=== PATIENT | female | born 1960 | race Caucasian/White ===

== ENCOUNTER → 2021-07-12 | Outpatient (CLI) | payer BC ==
--- NOTE | 2021-07-12 15:01 | US ---
EXAMINATION TYPE: US venous doppler duplex LE LT DATE OF EXAM: 07/12/2021 2:26 PM COMPARISON: NONE CLINICAL HISTORY: M79.662 PAIN IN LEFT LOWER LEG. Leg spasms SIDE PERFORMED: Left TECHNIQUE: The lower extremity deep venous system is examined utilizing real time linear array sonog ranjith with graded compression, doppler sonography and color-flow sonography. VESSELS IMAGED: Common Femoral Vein Deep Femoral Vein Greater Saphenous Vein * Femoral Vein Popliteal Vein Small Saphenous Vein * Proximal Calf Veins (* superficial vessels) There is normal flow, compressibility, vascular waveforms. Left Leg: Negative for DVT IMPRESSION: No evident deep venous thrombosis within the left lower extremity from the level of the k nee centrally
== END | disposition home or self-care (01) ==
LOC: RADUSWWP 14:04
PROVIDERS: ATTEND Internal Medicine
DX: M79.662 Pain in left lower leg (principal)

== ENCOUNTER 2022-03-03 11:52 | Inpatient (IN) | payer BC ==
[2022-03-03] MEDS ORDERED: SODIUM CHLORIDE 0.9% 500 ML 500 ML IV STA (12:30)
[2022-03-03] MEDS ORDERED: ONDANSETRON 4 MG/2 ML VIAL IVP STA (12:30)
--- NOTE | 2022-03-03 12:36 | ED ---
General Adult HPI - General Chief complaint: Fall Stated complaint: Pain, vomiting, falls Time Seen by Provider: 03/03/22 12:19 Source: patient, family, RN notes reviewed, old records reviewed Mode of arrival: wheelchair Limitations: no limitations - History of Present Illness Initial comments: 62-year-old female alert and oriented 4 presents to the emergency room with her , states sent by her primary care doctor for evaluation and admission. Patient states that she has had 4 weeks of left hip pain causing her to have multiple falls. Last fell this morning in parking lot of doctor's office onto her left knee. She continues to have left knee pain and left hip pain for several weeks. She states that she is scheduled for an MRI March 12. She has also had 3 days of nausea and vomiting with a 12 pound weight loss, generalized weakness. History of asthma, coronary artery disease, diabetes, hypertension and cholecystectomy. -: week(s) (4) Location: left, lower extremity (hip and knee) Severity scale (1-10): 10 Quality: constant Consistency: constant Improves with: immobilization Worsens with: other (walking) Associated Symptoms: loss of appetite, nausea/vomiting (for 3 days) Treatments Prior to Arrival: other (PCP sent to ER, [facility] at 0330) - Related Data Home Medications Medication Instructions Recorded Confirmed Aspirin EC [Ecotrin Low Dose] 81 mg PO DAILY 03/03/22 03/03/22 Atorvastatin Calcium 40 mg PO HS 03/03/22 03/03/22 Budesonide/Formoterol Fumarate 2 puff INHALATION RT-BID 03/03/22 03/03/22 [Symbicort 160-4.5 Mcg Inhaler] Famotidine [Pepcid] 20 mg PO BID 03/03/22 03/03/22 HYDROcodone/APAP 10-325MG [[place] 1 tab PO BID 03/03/22 03/03/22 10-325] Metoprolol Tartrate [Lopressor] 50 mg PO BID 03/03/22 03/03/22 Naproxen [EC-Naprosyn] 500 mg PO BID 03/03/22 03/03/22 Omeprazole [PriLOSEC] 20 mg PO BID 03/03/22 03/03/22 Orphenadrine Citrate [Orphenadrine 100 mg PO BID 03/03/22 03/03/22 Citrate ER] Pantoprazole [Protonix] 40 mg PO DAILY 03/03/22 03/03/22 Pioglitazone [Actos] 30 mg PO DAILY 03/03/22 03/03/22 lisinopriL [Zestril] 20 mg PO DAILY 03/03/22 03/03/22 metFORMIN HCL 500 mg PO BID 03/03/22 03/03/22 Allergies Allergy/AdvReac Type Severity Reaction Status Date / Time No Known Allergies Allergy Verified 03/03/22 15:23 Review of Systems ROS Statement: Those systems with pertinent positive or pertinent negative responses have been documented in the HPI. ROS Other: All systems not noted in ROS Statement are negative. Past Medical History Past Medical History: Asthma, Coronary Artery Disease (CAD), Chest Pain / Angina, Diabetes Mellitus, Hypertension History of Any Multi-Drug Resistant Organisms: None Reported Past Surgical History: Section, Cholecystectomy, Heart Catheterization, Heart Catheterization With Stent Additional Past Surgical History / Comment(s): heart stents Past Psychological History: No Psychological Hx Reported Smoking Status: Current every day smoker Past Alcohol Use History: None Reported Past Drug Use History: None Reported General Exam Limitations: no limitations General appearance: alert, in no apparent distress Head exam: Present: atraumatic Eye exam: Absent: periorbital swelling Neck exam: Absent: meningismus Respiratory exam: Present: wheezes (Bilateral expiratory). Absent: respiratory distress, accessory muscle use Cardiovascular Exam: Present: tachycardia GI/Abdominal exam: Present: soft, tenderness (diffuse). Absent: distended, guarding, rebound, rigid Left Hip exam: Present: tenderness, pelvic stability. Absent: swelling, abrasion, laceration, ecchymosis, deformity, external rotation, internal rotation, shortening Upper Leg exam: Present: normal inspection. Absent: tenderness Knee exam: Present: tenderness, full knee extension. Absent: swelling, laceration, ecchymosis, deformity, effusion Lower Leg exam: Absent: tenderness, swelling Ankle exam: Absent: tenderness, swelling Foot/Toe exam: Absent: tenderness, swelling Neurovascular tendon exam: Present: no vascular compromise. Absent: abnormal cap refill, extremity cold to touch, pallor, decreased fine/light touch Back exam: Absent: tenderness, CVA tenderness (R), CVA tenderness (L), rash noted Neurological exam: Present: alert, oriented X3 Psychiatric exam: Present: normal affect, normal mood Skin exam: Present: warm, dry. Absent: cyanosis, diaphoretic, petechiae, pallor Course Vital Signs 03/03/22 03/03/22 03/03/22 11:53 13:38 13:46 Temperature 98.1 F Pulse Rate 125 H 120 H 116 H Respiratory 28 H Rate Blood Pressure 169/102 O2 Sat by Pulse 99 Oximetry 03/03/22 14:22 Temperature Pulse Rate 113 H Respiratory 18 Rate Blood Pressure 194/117 O2 Sat by Pulse 95 Oximetry EKG Findings - EKG Results: EKG shows: tachycardia (Sinus tachycardia with a ventricular rate of 114, TN interval 0.161, QRS 0.82, QTC 0.413) Medical Decision Making - Medical Decision Making No acute abdominal or pelvic process noted on noncontrast CT. Nonobstructive bilateral renal calculi. Small to moderate sized hiatal hernia. Patient does have a history of cholecystectomy. Chest x-ray shows no acute cardiopulmonary process. X-ray of the left knee shows no acute fracture or dislocation. Magnesium is 1.2 she was given IV supplementation. Potassium 3.2 was given oral supplementation. EKG shows sinus tachycardia at 114, no ST elevation, no old to compare. Troponin negative at 0.012. Patient denies any chest pain or shortness of breath. Patient states that she was at [facility] last week. Attempted to obtain records unsuccessful. Due to patient's frequent falls, generalized weakness and hypomagnesemia she will be admitted to the hospital. I did discuss this case with Dr. Barragan who is agreeable to admission . Case discussed with Dr. Jackson. - Lab Data Result diagrams: 03/03/22 12:52 03/03/22 12:52 Lab Results 03/03/22 03/03/22 03/03/22 Range/Units 12:52 12:52 12:52 WBC 12.2 H (3.8-10.6) k/uL RBC 5.29 (3.80-5.40) m/uL Hgb 17.1 H (11.4-16.0) gm/dL Hct 48.2 H (34.0-46.0) % MCV 91.1 (80.0-100.0) fL MCH 32.3 (25.0-35.0) pg MCHC 35.5 (31.0-37.0) g/dL RDW 13.1 (11.5-15.5) % Plt Count 382 (150-450) k/uL MPV 7.7 Neutrophils % 72 % Lymphocytes % 19 % Monocytes % 5 % Eosinophils % 2 % Basophils % 1 % Neutrophils # 8.8 H (1.3-7.7) k/uL Lymphocytes # 2.3 (1.0-4.8) k/uL Monocytes # 0.6 (0-1.0) k/uL Eosinophils # 0.2 (0-0.7) k/uL Basophils # 0.1 (0-0.2) k/uL PT 11.0 (9.0-12.0) sec INR 1.0 (<1.2) APTT 24.1 (22.0-30.0) sec Sodium 137 (137-145) mmol/L Potassium 3.2 L (3.5-5.1) mmol/L Chloride 99 (98-107) mmol/L Carbon Dioxide 23 (22-30) mmol/L Anion Gap 15 mmol/L BUN 11 (7-17) mg/dL Creatinine 0.40 L (0.52-1.04) mg/dL Est GFR (CKD-EPI)AfAm >90 (>60 ml/min/1.73 sqM) Est GFR (CKD-EPI)NonAf >90 (>60 ml/min/1.73 sqM) Glucose 249 H (74-99) mg/dL Plasma Lactic Acid Jairo (0.7-2.0) mmol/L Calcium 9.6 (8.4-10.2) mg/dL Ionized Calcium Essie 4.9 (4.5-5.3) mg/dL Magnesium 1.2 L (1.6-2.3) mg/dL Total Bilirubin 0.6 (0.2-1.3) mg/dL AST 23 (14-36) U/L ALT 22 (4-34) U/L Alkaline Phosphatase 112 (38-126) U/L Troponin I (0.000-0.034) ng/mL Total Protein 6.7 (6.3-8.2) g/dL Albumin 4.2 (3.5-5.0) g/dL Urine Color Urine Appearance (Clear) Urine pH (5.0-8.0) Ur Specific Jenn[place] (1.001-1.035) Urine Protein (Negative) Urine Glucose (UA) (Negative) Urine Ketones (Negative) Urine Blood (Negative) Urine Nitrite (Negative) Urine Bilirubin (Negative) Urine Urobilinogen (<2.0) mg/dL Ur Leukocyte Esterase (Negative) Coronavirus (PCR) (Not Detectd) 03/03/22 03/03/22 03/03/22 Range/Units 12:52 12:52 12:52 WBC (3.8-10.6) k/uL RBC (3.80-5.40) m/uL Hgb (11.4-16.0) gm/dL Hct (34.0-46.0) % MCV (80.0-100.0) fL MCH (25.0-35.0) pg MCHC (31.0-37.0) g/dL RDW (11.5-15.5) % Plt Count (150-450) k/uL MPV Neutrophils % % Lymphocytes % % Monocytes % % Eosinophils % % Basophils % % Neutrophils # (1.3-7.7) k/uL Lymphocytes # (1.0-4.8) k/uL Monocytes # (0-1.0) k/uL Eosinophils # (0-0.7) k/uL Basophils # (0-0.2) k/uL PT (9.0-12.0) sec INR (<1.2) APTT (22.0-30.0) sec Sodium (137-145) mmol/L Potassium (3.5-5.1) mmol/L Chloride (98-107) mmol/L Carbon Dioxide (22-30) mmol/L Anion Gap mmol/L BUN (7-17) mg/dL Creatinine (0.52-1.04) mg/dL Est GFR (CKD-EPI)AfAm (>60 ml/min/1.73 sqM) Est GFR (CKD-EPI)NonAf (>60 ml/min/1.73 sqM) Glucose (74-99) mg/dL Plasma Lactic Acid Jairo 1.7 (0.7-2.0) mmol/L Calcium (8.4-10.2) mg/dL Ionized Calcium Essie (4.5-5.3) mg/dL Magnesium (1.6-2.3) mg/dL Total Bilirubin (0.2-1.3) mg/dL AST (14-36) U/L ALT (4-34) U/L Alkaline Phosphatase (38-126) U/L Troponin I <0.012 (0.000-0.034) ng/mL Total Protein (6.3-8.2) g/dL Albumin (3.5-5.0) g/dL Urine Color Light Yellow Urine Appearance Clear (Clear) Urine pH 7.0 (5.0-8.0) Ur Specific Jenn[place] 1.008 (1.001-1.035) Urine Protein Negative (Negative) Urine Glucose (UA) 4+ H (Negative) Urine Ketones 2+ H (Negative) Urine Blood Negative (Negative) Urine Nitrite Negative (Negative) Urine Bilirubin Negative (Negative) Urine Urobilinogen <2.0 (<2.0) mg/dL Ur Leukocyte Esterase Negative (Negative) Coronavirus (PCR) (Not Detectd) 03/03/22 Range/Units 14:51 WBC (3.8-10.6) k/uL RBC (3.80-5.40) m/uL Hgb (11.4-16.0) gm/dL Hct (34.0-46.0) % MCV (80.0-100.0) fL MCH (25.0-35.0) pg MCHC (31.0-37.0) g/dL RDW (11.5-15.5) % Plt Count (150-450) k/uL MPV Neutrophils % % Lymphocytes % % Monocytes % % Eosinophils % % Basophils % % Neutrophils # (1.3-7.7) k/uL Lymphocytes # (1.0-4.8) k/uL Monocytes # (0-1.0) k/uL Eosinophils # (0-0.7) k/uL Basophils # (0-0.2) k/uL PT (9.0-12.0) sec INR (<1.2) APTT (22.0-30.0) sec Sodium (137-145) mmol/L Potassium (3.5-5.1) mmol/L Chloride (98-107) mmol/L Carbon Dioxide (22-30) mmol/L Anion Gap mmol/L BUN (7-17) mg/dL Creatinine (0.52-1.04) mg/dL Est GFR (CKD-EPI)AfAm (>60 ml/min/1.73 sqM) Est GFR (CKD-EPI)NonAf (>60 ml/min/1.73 sqM) Glucose (74-99) mg/dL Plasma Lactic Acid Jairo (0.7-2.0) mmol/L Calcium (8.4-10.2) mg/dL Ionized Calcium Essie (4.5-5.3) mg/dL Magnesium (1.6-2.3) mg/dL Total Bilirubin (0.2-1.3) mg/dL AST (14-36) U/L ALT (4-34) U/L Alkaline Phosphatase (38-126) U/L Troponin I (0.000-0.034) ng/mL Total Protein (6.3-8.2) g/dL Albumin (3.5-5.0) g/dL Urine Color Urine Appearance (Clear) Urine pH (5.0-8.0) Ur Specific Jenn[place] (1.001-1.035) Urine Protein (Negative) Urine Glucose (UA) (Negative) Urine Ketones (Negative) Urine Blood (Negative) Urine Nitrite (Negative) Urine Bilirubin (Negative) Urine Urobilinogen (<2.0) mg/dL Ur Leukocyte Esterase (Negative) Coronavirus (PCR) Not Detected (Not Detectd) Disposition Clinical Impression: Hypomagnesemia, Fall, Generalized weakness Disposition: ADMITTED IP TO THIS [facility] Decision Date: 03/03/22 Decision Time: 15:47
[2022-03-03] MEDS ORDERED: IPRATROPIUM-ALBUTEROL 3 ML NEB INHALATION STA (12:37)
[2022-03-03 13:19] LABS: Basophils # (A) 0.1 k/uL (0-0.2); Basophils % (A) 1 %; Eosinophils # (A) 0.2 k/uL (0-0.7); Eosinophils % (A) 2 %; HCT 48.2 % (34.0-46.0); HGB 17.1 gm/dL (11.4-16.0); Lymphocytes # (A) 2.3 k/uL (1.0-4.8); Lymphocytes % (A) 19 %; MCH 32.3 pg (25.0-35.0); MCHC 35.5 g/dL (31.0-37.0); MCV 91.1 fL (80.0-100.0); Mean Platelet Volume 7.7; Monocytes # (A) 0.6 k/uL (0-1.0); Monocytes % (A) 5 %; Neutrophils # (A) 8.8 k/uL (1.3-7.7); Neutrophils % (A) 72 %; Platelet Count 382 k/uL (150-450); RBC 5.29 m/uL (3.80-5.40); RDW 13.1 % (11.5-15.5); WBC 12.2 k/uL (3.8-10.6)
[2022-03-03 13:25] LABS: Ionized Calcium 4.9 mg/dL (4.5-5.3)
[2022-03-03 13:31] LABS: Partial Thromboplastin Time 24.1 sec (22.0-30.0)
[2022-03-03 13:35] LABS: ALT 22 U/L (4-34); AST 23 U/L (14-36); African American GFR (CKD) >90 (>60 ml/min/1.73 sqM); Albumin 4.2 g/dL (3.5-5.0); Alkaline Phosphatase 112 U/L (38-126); Anion Gap 15 mmol/L; Blood Urea Nitrogen 11 mg/dL (7-17); Calcium 9.6 mg/dL (8.4-10.2); Carbon Dioxide 23 mmol/L (22-30); Chloride 99 mmol/L (98-107); Glucose 249 mg/dL (74-99); Magnesium 1.2 mg/dL (1.6-2.3); Non-African American GFR(CKD) >90 (>60 ml/min/1.73 sqM); Potassium 3.2 mmol/L (3.5-5.1); Sodium 137 mmol/L (137-145); Total Bilirubin 0.6 mg/dL (0.2-1.3); Total Protein 6.7 g/dL (6.3-8.2)
--- NOTE | 2022-03-03 13:58 | XR ---
Left knee HISTORY: Trauma and pain 3 views the left knee Bone mineralization, joint spaces and alignment are maintained. There are atherosclerotic vascular ca lcifications noted. There may be minimal suprapatellar joint effusion, and soft tissue swelling in th e prepatellar region. IMPRESSION: No acute fracture or dislocation. Correlate for possible joint effusion, soft tissue swel ling.
--- NOTE | 2022-03-03 13:59 | XR ---
EXAMINATION TYPE: XR chest 2V DATE OF EXAM: 03/03/2022 COMPARISON: NONE HISTORY: Weakness, trauma and pain TECHNIQUE: Frontal and lateral views of the chest are obtained. FINDINGS: There is no focal air space opacity, pleural effusion, or pneumothorax seen. The cardiac silhouette size is within normal limits. Surgical clips present in the right upper quadrant. Suspect there is a coronary artery stent. Increased AP diameter chest and retrosternal airspace may be indic ative of underlying COPD. The osseous structures are intact. IMPRESSION: No acute cardiopulmonary process.
[2022-03-03] MEDS ORDERED: POTASSIUM CHLORIDE ER 20 MEQ TAB.ER PO STA (14:14)
[2022-03-03] MEDS ORDERED: Magnesium Replacement Protocol 1 EACH MISC MISCELLANE PRN (14:15)
[2022-03-03] MEDS: MAGNESIUM SULFATE-D5W PMX 1 GM in DEXTROSE/WATER 1 100ML.BAG IVPB SCH ×3 (14:21→17:14)
--- NOTE | 2022-03-03 14:48 | CT ---
EXAMINATION TYPE: CT abdomen pelvis wo con CT DLP: 429.6 mGycm, Automated exposure control for dose reduction was used. DATE OF EXAM: 03/03/2022 2:30 PM COMPARISON: None. CLINICAL INDICATION:Female, 62 years old with history of abdominal pain; TECHNIQUE: Standard CT of the abdomen and pelvis without IV or oral contrast. Lack of IV or oral co ntrast limits evaluation of solid and hollow organ viscera. Coronal and sagittal reformats were perfo rmed. FINDINGS: Evaluation is limited due to lack of IV contrast. LOWER CHEST: Bibasilar subpleural reticular opacity likely representing early fibrotic changes. Coron arnoldo artery calcifications. ABDOMEN LIVER: Unremarkable noncontrast appearance. GALLBLADDER AND BILE DUCTS: The gallbladder is surgically absent. No biliary duct dilatation. PANCREAS: Unremarkable noncontrast appearance. SPLEEN: Unremarkable noncontrast appearance. ADRENAL GLANDS: Unremarkable noncontrast appearance. KIDNEYS AND URETERS: No hydronephrosis. Nonobstructive bilateral renal calculi with a right lower jenise e calculus measuring about 4 mm and a left lower pole calculus measuring up to 3 mm. Mild atrophy of the right kidney compared to the left. Nonspecific bilateral perinephric fat stranding. PELVIS BLADDER: Moderately distended. REPRODUCTIVE: Portable CT noncontrast appearance. ABDOMEN & PELVIS STOMACH AND BOWEL: Small to moderate size hiatal hernia. No fat stranding. The appendix is within nor mal limits. No evidence of bowel obstruction. PERITONEUM: No evidence of pneumoperitoneum or free fluid. VASCULATURE: Moderate atherosclerotic calcifications are present throughout the abdominal aorta and i ts branches. No evidence of aortic aneurysm. MUSCULOSKELETAL: No acute osseous abnormalities. No aggressive osseous lesion. Multilevel degenerativ e changes of visualized spine. LYMPH NODES: No gross evidence for lymphadenopathy. SOFT TISSUE/ABDOMINAL WALL: Unremarkable IMPRESSION: 1. No acute abdominal/pelvic process within limitations of a noncontrast exam. 2. Nonobstructive bilateral renal calculi. 3. Small to moderate sized hiatal hernia.
[2022-03-03 15:23] LABS: Appearance,Urine Clear (Clear); Bilirubin,Urine Negative (Negative); Blood,Urine Negative (Negative); Color,Urine Light Yellow; Glucose,Urine (UA) 4+ (Negative); Leukocyte Esterase,Urine Negative (Negative); Nitrite,Urine Negative (Negative); Protein,Urine Negative (Negative); Specific Gravity,Urine 1.008 (1.001-1.035); Urobilinogen,Urine <2.0 mg/dL (<2.0)
[2022-03-03 15:28] LABS: Ketones,Urine 2+ (Negative)
[2022-03-03] MEDS ORDERED: IBUPROFEN 400 MG TAB PO PRN (15:47)
[2022-03-03] MEDS ORDERED: NALOXONE 0.4 MG/ML 1 ML VIAL IV PRN (15:47)
[2022-03-03] MEDS ORDERED: ONDANSETRON 4 MG/2 ML VIAL IVP PRN (15:47)
[2022-03-03] MEDS ORDERED: ACETAMINOPHEN TAB 325 MG TAB PO PRN (15:47)
[2022-03-03] MEDS: HYDROcodone/APAP 10-325MG 1 EACH TAB PO SCH (15:56)
--- NOTE | 2022-03-03 17:45 | P.HPIM ---
History of Present Illness H&P Date: 03/03/22 Natali Klein, is a 62-year-old female who presented to [facility] emergency room with a chief complaint of nausea or vomiting, left hip pain and multiple falls. She was evaluated in the emergency room, vital examination on presentation revealed a temperature of 98.1 pulse 125 respiration 28 blood pressure 169/102 pulse ox 95% on room air Laboratory data reveals white blood count 12.2 hemoglobin 17.1 platelet count 382 potassium 3.2 magnesium 1.2 Testing in the emergency room revealed computed tomography scan of the abdomen and pelvis without contrast revealed no acute abnormality there was nonobstructive bilateral renal calculi and [id number] sized hiatal hernia X-ray of the left knee revealed no acute fracture or dislocation possible joint effusion and soft tissue swelling, chest x-ray revealed no acute cardiopulmonary process, EKG revealed sinus tachycardia with possible right ventricular hypertrophy Patient was admitted to medical floor orthopedic surgery consultation request Past Medical History Past Medical History: Asthma, Coronary Artery Disease (CAD), Chest Pain / Angina, Diabetes Mellitus, Hypertension History of Any Multi-Drug Resistant Organisms: None Reported Past Surgical History: Section, Cholecystectomy, Heart Catheterization, Heart Catheterization With Stent Additional Past Surgical History / Comment(s): heart stents Past Psychological History: No Psychological Hx Reported Smoking Status: Current every day smoker Past Alcohol Use History: None Reported Past Drug Use History: None Reported Medications and Allergies Home Medications Medication Instructions Recorded Confirmed Type Aspirin EC [Ecotrin Low Dose] 81 mg PO DAILY 03/03/22 03/03/22 History Atorvastatin Calcium 40 mg PO HS 03/03/22 03/03/22 History Budesonide/Formoterol Fumarate 2 puff INHALATION RT-BID 03/03/22 03/03/22 History [Symbicort 160-4.5 Mcg Inhaler] Famotidine [Pepcid] 20 mg PO BID 03/03/22 03/03/22 History HYDROcodone/APAP 10-325MG [[place] 1 tab PO BID 03/03/22 03/03/22 History 10-325] Metoprolol Tartrate [Lopressor] 50 mg PO BID 03/03/22 03/03/22 History Naproxen [EC-Naprosyn] 500 mg PO BID 03/03/22 03/03/22 History Omeprazole [PriLOSEC] 20 mg PO BID 03/03/22 03/03/22 History Orphenadrine Citrate [Orphenadrine 100 mg PO BID 03/03/22 03/03/22 History Citrate ER] Pantoprazole [Protonix] 40 mg PO DAILY 03/03/22 03/03/22 History Pioglitazone [Actos] 30 mg PO DAILY 03/03/22 03/03/22 History lisinopriL [Zestril] 20 mg PO DAILY 03/03/22 03/03/22 History metFORMIN HCL 500 mg PO BID 03/03/22 03/03/22 History Allergies Allergy/AdvReac Type Severity Reaction Status Date / Time No Known Allergies Allergy Verified 03/03/22 15:23 Physical Exam Vitals: Vital Signs Temp Pulse Resp BP Pulse Ox 03/03/22 14:22 113 H 18 194/117 95 03/03/22 13:46 116 H 03/03/22 13:38 120 H 03/03/22 11:53 98.1 F 125 H 28 H 169/102 99 Intake and Output 03/03/22 03/03/22 03/03/22 06:59 14:59 22:59 Other: Weight 58.967 kg In general patient is alert and oriented x 3 in no distress HEENT head normocephalic and atraumatic Neck is supple no JVD no goiter no lymphadenopathy no carotid bruit Chest examination is clear to auscultation no crackles no wheezing Cardiac exam reveals regular heart sounds S1 and S2 no gallops no murmurs Abdomen is soft nontender no organomegaly with normal bowel sounds Extremity exam reveals no edema no cyanosis or clubbing Neurological examination reveals no gross focal deficits Results CBC & Chem 7: 03/03/22 12:52 03/03/22 12:52 Labs: Abnormal Lab Results - Last 24 Hours (Table) 03/03/22 03/03/22 03/03/22 Range/Units 12:52 12:52 12:52 WBC 12.2 H (3.8-10.6) k/uL Hgb 17.1 H (11.4-16.0) gm/dL Hct 48.2 H (34.0-46.0) % Neutrophils # 8.8 H (1.3-7.7) k/uL Potassium 3.2 L (3.5-5.1) mmol/L Creatinine 0.40 L (0.52-1.04) mg/dL Glucose 249 H (74-99) mg/dL Magnesium 1.2 L (1.6-2.3) mg/dL Urine Glucose (UA) 4+ H (Negative) Urine Ketones 2+ H (Negative) Assessment and Plan Plan: Episodes of nausea and vomiting for the last several weeks, cause is unclear Electrolyte imbalance with hypokalemia and hypomagnesemia likely related to vomiting Tachycardia on presentation Recommend falls Left hip pain Left knee pain and swelling Underlying history of hypertension Underlying history of COPD Underlying history of diabetes mellitus type 2 Underlying history of gastroesophageal reflux disease At this time patient will be admitted to medical floor Home medications reviewed and reordered Patient was started on potassium and magnesium replacement protocol Consultation for Dr. Norris initiated in regard to left hip pain and left knee pain Will check left lower extremity Doppler to rule out DVT For DVT prophylaxis with initiated subcu Lovenox Recheck labs and follow-up in a.m.
[2022-03-03] MEDS: SYMBICORT 160-4.5 MCG INHALER INHALATION SCH (20:51)
[2022-03-03] MEDS ORDERED: ATORVASTATIN 40 MG TAB PO SCH (21:00)
--- NOTE | 2022-03-03 21:00 | US ---
EXAMINATION TYPE: US venous doppler duplex LE LT DATE OF EXAM: 03/03/2022 5:43 PM COMPARISON: 07/12/21 CLINICAL HISTORY: left lower extremity pain. left leg pain SIDE PERFORMED: Left TECHNIQUE: The lower extremity deep venous system is examined utilizing real time linear array sonog ranjith with graded compression, doppler sonography and color-flow sonography. VESSELS IMAGED: Common Femoral Vein Deep Femoral Vein Greater Saphenous Vein * Femoral Vein Popliteal Vein Small Saphenous Vein * Proximal Calf Veins (* superficial vessels) FINDINGS: Grayscale, color doppler, spectral doppler imaging performed of the deep veins of the lowe r extremities. There is normal flow, compressibility, vascular waveforms. IMPRESSION: Negative for DVT, left lower extremity.
[2022-03-03] MEDS: FAMOTIDINE 20 MG TAB PO SCH (21:08)
[2022-03-03] MEDS: CYCLOBENZAPRINE 10 MG TAB PO SCH (21:08)
[2022-03-03] MEDS: METOPROLOL TARTRATE 50 MG TAB PO SCH (21:09)
[2022-03-03] MEDS: metFORMIN 500 MG TAB PO SCH (21:09)
[2022-03-03] MEDS ORDERED: hydrALAZINE HCL 20 MG/ML 1 ML VIAL IVP PRN (21:23)
[2022-03-03] MEDS: MORPHINE SULFATE 2 MG/ML SYRINGE IVP PRN (21:45)
[2022-03-04] MEDS: MORPHINE SULFATE 2 MG/ML SYRINGE IVP PRN ×2 (02:00→06:03)
[2022-03-04 05:05] VITALS: RESP 16
[2022-03-04] MEDS: SYMBICORT 160-4.5 MCG INHALER INHALATION SCH (08:08)
[2022-03-04] MEDS: CYCLOBENZAPRINE 10 MG TAB PO SCH (08:44)
[2022-03-04] MEDS: HYDROcodone/APAP 10-325MG 1 EACH TAB PO SCH (08:44)
[2022-03-04] MEDS: MAGNESIUM SULFATE-D5W PMX 1 GM in DEXTROSE/WATER 1 100ML.BAG IVPB SCH ×2 (08:44→09:52)
[2022-03-04] MEDS: metFORMIN 500 MG TAB PO SCH (08:44)
[2022-03-04] MEDS: METOPROLOL TARTRATE 50 MG TAB PO SCH (08:44)
[2022-03-04] MEDS: FAMOTIDINE 20 MG TAB PO SCH (08:44)
[2022-03-04] MEDS ORDERED: lisinopriL 20 MG TAB PO SCH (09:00)
[2022-03-04] MEDS ORDERED: PIOGLITAZONE 30 MG TAB PO SCH ×2 (09:00→21:00)
[2022-03-04] MEDS ORDERED: ASPIRIN 81 MG PO SCH (09:00)
[2022-03-04] MEDS ORDERED: ENOXAPARIN 40 MG/0.4 ML SYRINGE SQ SCH (09:00)
[2022-03-04] MEDS ORDERED: PANTOPRAZOLE 40 MG TABLET PO SCH (09:00)
[2022-03-04 09:11] LABS: Anion Gap 10 mmol/L; Blood Urea Nitrogen 15 mg/dL (7-17); Carbon Dioxide 27 mmol/L (22-30); Chloride 100 mmol/L (98-107); Glucose 247 mg/dL (74-99); Sodium 137 mmol/L (137-145)
[2022-03-04 09:15] LABS: African American GFR (CKD) >90 (>60 ml/min/1.73 sqM); Non-African American GFR(CKD) >90 (>60 ml/min/1.73 sqM)
--- NOTE | 2022-03-04 09:53 | P.PN ---
Subjective Progress Note Date: 03/04/22 Natali Klein, is a 62-year-old female who presented to [facility] emergency room with a chief complaint of nausea or vomiting, left hip pain and multiple falls. She was evaluated in the emergency room, vital examination on presentation revealed a temperature of 98.1 pulse 125 respiration 28 blood pressure 169/102 pulse ox 95% on room air Laboratory data reveals white blood count 12.2 hemoglobin 17.1 platelet count 382 potassium 3.2 magnesium 1.2 Testing in the emergency room revealed computed tomography scan of the abdomen and pelvis without contrast revealed no acute abnormality there was nonobstructive bilateral renal calculi and [id number] sized hiatal hernia X-ray of the left knee revealed no acute fracture or dislocation possible joint effusion and soft tissue swelling, chest x-ray revealed no acute cardiopulmonary process, EKG revealed sinus tachycardia with possible right ventricular hypertrophy Patient was admitted to medical floor orthopedic surgery consultation request On 03/04/2022 patient is alert and oriented 3. Patient is resting comfortably in bed still complaining of left hip pain. Venous Doppler completed showing negative for DVT. Magnesium 1.7. Patient denies chest pain or shortness breath. Patient denies nausea vomiting or diarrhea. Patient denies any urinary burning or frequency Objective - Vital Signs Vital signs: Vital Signs Temp 98.3 F 03/04/22 04:51 Pulse 88 03/04/22 04:51 Resp 16 03/04/22 04:51 BP 150/90 03/04/22 06:59 Pulse Ox 94 L 03/04/22 04:51 FiO2 Intake & Output 03/03/22 03/04/22 03/04/22 18:59 06:59 18:59 Intake Total 540 Balance 540 Weight 58.967 kg Intake: Oral 540 Other: Voiding Method Toilet # Voids 2 - Exam In general patient is alert and oriented x 3 in no distress HEENT head normocephalic and atraumatic Neck is supple no JVD no goiter no lymphadenopathy no carotid bruit Chest examination is clear to auscultation no crackles no wheezing Cardiac exam reveals regular heart sounds S1 and S2 no gallops no murmurs Abdomen is soft nontender no organomegaly with normal bowel sounds Extremity exam reveals no edema no cyanosis or clubbing Neurological examination reveals no gross focal deficits - Labs CBC & Chem 7: 03/03/22 12:52 03/04/22 06:10 Labs: Abnormal Lab Results - Last 24 Hours (Table) 03/03/22 03/03/22 03/03/22 Range/Units 12:52 12:52 12:52 WBC 12.2 H (3.8-10.6) k/uL Hgb 17.1 H (11.4-16.0) gm/dL Hct 48.2 H (34.0-46.0) % Neutrophils # 8.8 H (1.3-7.7) k/uL Potassium 3.2 L (3.5-5.1) mmol/L Creatinine 0.40 L (0.52-1.04) mg/dL Glucose 249 H (74-99) mg/dL Hemoglobin A1c (0.0-6.0) % Magnesium 1.2 L (1.6-2.3) mg/dL Urine Glucose (UA) 4+ H (Negative) Urine Ketones 2+ H (Negative) 03/03/22 03/04/22 Range/Units 12:52 06:10 WBC (3.8-10.6) k/uL Hgb (11.4-16.0) gm/dL Hct (34.0-46.0) % Neutrophils # (1.3-7.7) k/uL Potassium (3.5-5.1) mmol/L Creatinine (0.52-1.04) mg/dL Glucose 247 H (74-99) mg/dL Hemoglobin A1c 9.8 H (0.0-6.0) % Magnesium (1.6-2.3) mg/dL Urine Glucose (UA) (Negative) Urine Ketones (Negative) Assessment and Plan Plan: Episodes of nausea and vomiting for the last several weeks, cause is unclear Electrolyte imbalance with hypokalemia and hypomagnesemia likely related to vomiting Tachycardia on presentation Recommend falls Left hip pain Left knee pain and swelling Underlying history of hypertension Underlying history of COPD Underlying history of diabetes mellitus type 2 Underlying history of gastroesophageal reflux disease At this time patient will be admitted to medical floor Home medications reviewed and reordered Patient was started on potassium and magnesium replacement protocol Consultation for Dr. Norris initiated in regard to left hip pain and left knee pain Doppler negative for DVT For DVT prophylaxis with initiated subcu Lovenox Recheck labs and follow-up in a.m.
--- NOTE | 2022-03-04 10:20 | P.CNOR ---
History of Present Illness - [facility] Consult date: 03/04/22 Requesting physician: Lilly Barragan Consult reason: other (left hip pain) History of present illness: Patient is a 62-year-old female who presented to the emergency department yesterday status post fall at doctor's office. Patient was seen at bedside this morning lying in right lateral recumbent position. Patient says she has had a series of falls over the past few months. Patient says her most recent fall was yesterday at her primary care doctor's office. Patient says she fell a couple times yesterday and she says this is due to her left leg giving out on her. Patient mentions that her left hip has been feeling weak over the past few weeks. Patient says she normally ambulates without a walker or cane. Patient says she has had increased pain and she describes it over her left hip. Patient says this pain is on the backside of her hip pain does radiate down the back or leg. Patient also mentions she does have some left knee pain since the fall yesterday. Patient denies any previous orthopedic surgical history. Patient says her primary care doctor, Dr. Barragan did give her some Guil[place] to help her can control some of the pain. Patient does feel that the Guil[place] did help somewhat with her pain. X-ray of the left knee demonstrates no fractures or joint effusion. CT of the abdomen/pelvis did not present with any hip fracture/dislocation. Patient says she does urinate regularly. Patient denies any saddle anesthesia. Patient denies chest pain, fever, shortness of breath, loss of bowel/bladder control. Past Medical History Past Medical History: Asthma, Coronary Artery Disease (CAD), Chest Pain / Angina, Diabetes Mellitus, Hypertension History of Any Multi-Drug Resistant Organisms: None Reported Past Surgical History: Section, Cholecystectomy, Heart Catheterization, Heart Catheterization With Stent Additional Past Surgical History / Comment(s): heart stents Date of Last Stent Placement:: unknown Past Psychological History: No Psychological Hx Reported Smoking Status: Current every day smoker Past Alcohol Use History: None Reported Past Drug Use History: None Reported Medications and Allergies Home Medications Medication Instructions Recorded Confirmed Type Aspirin EC [Ecotrin Low Dose] 81 mg PO DAILY 03/03/22 03/03/22 History Atorvastatin Calcium 40 mg PO HS 03/03/22 03/03/22 History Budesonide/Formoterol Fumarate 2 puff INHALATION RT-BID 03/03/22 03/03/22 History [Symbicort 160-4.5 Mcg Inhaler] Famotidine [Pepcid] 20 mg PO BID 03/03/22 03/03/22 History HYDROcodone/APAP 10-325MG [[place] 1 tab PO BID 03/03/22 03/03/22 History 10-325] Metoprolol Tartrate [Lopressor] 50 mg PO BID 03/03/22 03/03/22 History Naproxen [EC-Naprosyn] 500 mg PO BID 03/03/22 03/03/22 History Omeprazole [PriLOSEC] 20 mg PO BID 03/03/22 03/03/22 History Orphenadrine Citrate [Orphenadrine 100 mg PO BID 03/03/22 03/03/22 History Citrate ER] Pantoprazole [Protonix] 40 mg PO DAILY 03/03/22 03/03/22 History Pioglitazone [Actos] 30 mg PO DAILY 03/03/22 03/03/22 History lisinopriL [Zestril] 20 mg PO DAILY 03/03/22 03/03/22 History metFORMIN HCL 500 mg PO BID 03/03/22 03/03/22 History Allergies Allergy/AdvReac Type Severity Reaction Status Date / Time No Known Allergies Allergy Verified 03/03/22 15:23 Physical Examination Inspection: Negative for any open fractures, ulcers, significant erythema/ulcers. Scoliosis present throughout the spine. Sensation: Sensation is equal, symmetric, bilaterally intact throughout the upper and lower extremities. Palpation: Patient does have moderate tenderness to palpation over the left SI joint. Patient does also have some mild amount of tenderness to palpation around the patella on LLE. Nontender to palpation throughout rest exam Range of motion: Patient does have full range of motion bilateral upper and lowe r extremities on exam. Motor: 4/5 in resisted left hip flexion/extension. 5/5 in all other major motor groups Neurovascular status: Pressure status is intact bilaterally. Radial pulses intact bilaterally. Cap refill under 3 seconds in digits of upper extremities. Special tests: Positive straight leg raise on the left lower extremity. Negative clonus bilaterally. Negative Nimesh's bilaterally. Negative Homans bilaterally. Results - Labs Labs: Abnormal Lab Results - Last 24 Hours (Table) 03/03/22 03/03/22 03/03/22 Range/Units 12:52 12:52 12:52 WBC 12.2 H (3.8-10.6) k/uL Hgb 17.1 H (11.4-16.0) gm/dL Hct 48.2 H (34.0-46.0) % Neutrophils # 8.8 H (1.3-7.7) k/uL Potassium 3.2 L (3.5-5.1) mmol/L Creatinine 0.40 L (0.52-1.04) mg/dL Glucose 249 H (74-99) mg/dL Hemoglobin A1c (0.0-6.0) % Magnesium 1.2 L (1.6-2.3) mg/dL Urine Glucose (UA) 4+ H (Negative) Urine Ketones 2+ H (Negative) 03/03/22 03/04/22 Range/Units 12:52 06:10 WBC (3.8-10.6) k/uL Hgb (11.4-16.0) gm/dL Hct (34.0-46.0) % Neutrophils # (1.3-7.7) k/uL Potassium (3.5-5.1) mmol/L Creatinine (0.52-1.04) mg/dL Glucose 247 H (74-99) mg/dL Hemoglobin A1c 9.8 H (0.0-6.0) % Magnesium (1.6-2.3) mg/dL Urine Glucose (UA) (Negative) Urine Ketones (Negative) H & H 03/03/22 Range/Units 12:52 Hgb 17.1 H (11.4-16.0) gm/dL Hct 48.2 H (34.0-46.0) % Coagulation 03/03/22 Range/Units 12:52 INR 1.0 (<1.2) Result Diagrams: 03/03/22 12:52 03/04/22 06:10 Assessment and Plan Assessment: 1. Left SI joint pain; left knee pain; left lower extremity weakness Plan: 1. Left SI joint pain; left knee pain; left lower extremity weakness - patient stable at bedside this morning. CT of abdomen/pelvis has been reviewed. Negative for any fractures/dislocations of the left hip. Pathology shows be coming from the lumbar spine this time. x-ray of the lumbar spine will be ordered for further evaluation. X-ray left knee negative for any fractures/significant effusion. We do recommend pain management with Tylenol or Guil[place]. We will continue to follow patient during her stay in hospital. 2. Appreciate medical management 3. Pain management - Guilford; Tylenol; Flexeril 4. GI prophylaxis - Protonix 5. DVT prophylaxis - Lovenox; aspirin 6. PT/OT - weightbearing as tolerated with walker 7. Appreciate consult Time with Patient: Less than 30
[2022-03-04 11:44] VITALS: BP 134/82; PULSE 71; TEMP 97.7
--- NOTE | 2022-03-04 12:23 | XR ---
Lumbar spine HISTORY: Low back pain, trauma 3 views the lumbar spine No comparisons Lumbar vertebral bodies show preserved height and alignment. There is multilevel spondylosis. Bone mi neralization is reduced. Loss of disc height is greatest at L5-S1 with associated vacuum phenomenon. Sclerosis is present in the posterior elements. Atherosclerotic vascular calcifications are present i n the aorta iliac distribution. Question calcification within the right kidney measuring 4 mm. IMPRESSION: No acute fracture or subluxation. Degenerative disc disease, osteopenia, facet arthropath y. Additional findings above.
--- NOTE | 2022-03-04 12:25 | XR ---
Left hip HISTORY: Trauma and pain 2 views of left hip Bone mineralization is reduced which could limit evaluation. There is some marginal spurring, concent thea joint space loss consistent with osteoarthritis. Alignment is maintained. There is overlying kelsi fact. Atherosclerotic vascular calcifications are noted incidentally. IMPRESSION: No evident fracture or dislocation. Low bone mineralization, follow-up as indicated if oc cult fractures suspected clinically.
== END 2022-03-04 14:33 | disposition home or self-care (01) | DRG 641 ==
LOC: EC 11:52 → 4SSUR 15:52 → 5NMEDONC 15:59
PROVIDERS: ADMIT Internal Medicine; ATTEND Internal Medicine
DX: E83.42 Hypomagnesemia (principal); E11.9 Type 2 diabetes mellitus without complications; J44.9 Chronic obstructive pulmonary disease, unspecified; E87.6 Hypokalemia; Z20.822 Contact with and (suspected) exposure to COVID-19; Z28.310 Unvaccinated for COVID-19; K44.9 Diaphragmatic hernia without obstruction or gangrene; N20.0 Calculus of kidney; M53.3 Sacrococcygeal disorders, not elsewhere classified; M25.552 Pain in left hip; M25.462 Effusion, left knee; I10 Essential (primary) hypertension; I25.10 Atherosclerotic heart disease of native coronary artery without angina pectoris; K21.9 Gastro-esophageal reflux disease without esophagitis; R29.6 Repeated falls; R53.1 Weakness; F17.210 Nicotine dependence, cigarettes, uncomplicated; Z71.6 Tobacco abuse counseling; Z79.82 Long term (current) use of aspirin; Z79.51 Long term (current) use of inhaled steroids; Z79.84 Long term (current) use of oral hypoglycemic drugs; Z79.891 Long term (current) use of opiate analgesic; Z79.1 Long term (current) use of non-steroidal anti-inflammatories (NSAID); Z79.899 Other long term (current) drug therapy; Z95.5 Presence of coronary angioplasty implant and graft; Z91.81 History of falling; W19.XXXA Unspecified fall, initial encounter; Y92.481 Parking lot as the place of occurrence of the external cause
CPT/HCPCS: 36415; 71046; 72100; 73502; 74176; 80048; 80053; 81003; 82330; 83036; 83605; 83735; 84484; 85025; 85610; 85730; 87635; 93005; 94640; 96361; 96365; 96366; 96375; 99285

== ENCOUNTER → 2023-06-29 | Outpatient (CLI) | payer BC ==
--- NOTE | 2023-06-29 12:43 | US ---
EXAMINATION TYPE: US arterial LE single level DATE OF EXAM: 06/29/2023 9:54 AM CLINICAL INDICATION: Female, 63 years old with history of I73.9 PERIPHERAL VASCULAR DISEASE, UNSPECIF IED; History of: Smoker: Current Smoker Hypertension: Takes medication Diabetic: Yes Hyperlipidemia: Yes TIA/CVA: No HI: No Vascular Ulcers: No Claudication: Bilateral Right Brachial Pressure: 174 Left Brachial Pressure: 174 Ankle-Brachial Indices: Right: 0.68 Left: 0.86 Toe Brachial Indices: Not obtained due to right toe first digit wound Doppler Waveforms: Right: PLUSH CUTTER: Triphasic DFA: Triphasic SFA: Monophasic Popliteal Artery: Monophasic SYBASE DEVELOPER: Monophasic Peroneal Artery: Monophasic CARA: Monophasic Left: PLUSH CUTTER: Biphasic DFA: Biphasic SFA: Biphasic Popliteal Artery: Monophasic SYBASE DEVELOPER: Monophasic Peroneal Artery: Monophasic CARA: Monophasic IMPRESSION: Mild to moderate plaque formation noted throughout the bilateral lower extremity arterie s. TIMOTHY's and arterial duplex waveforms suggest moderate PAD throughout the right lower extremity and mild PAD throughout the left lower extremity.
== END | disposition home or self-care (01) ==
LOC: RADUSWWP 08:38
PROVIDERS: ATTEND Podiatrist Foot & Ankle Surgery
DX: I70.203 Unspecified atherosclerosis of native arteries of extremities, bilateral legs (principal)
CPT/HCPCS: 93922

== ENCOUNTER → 2023-09-06 | Outpatient (CLI) | payer BC ==
[2023-09-06 15:48] LABS: Blood Urea Nitrogen 7.7 mg/dL (9.0-27.0); Carbon Dioxide 24.3 mmol/L (21.6-31.8); Chloride 99 mmol/L (96-109); Potassium 4.7 mmol/L (3.5-5.5); Sodium 137 mmol/L (135-145)
[2023-09-06 15:55] LABS: HCT 50.4 % (37.2-46.3); HGB 16.8 g/dL (12.0-15.0); MCH 30.7 pg (27.0-32.0); MCHC 33.3 g/dL (32.0-37.0); Mean Platelet Volume 10.1 FL (9.5-12.2); NRBC Per 100 WBC 0 X 10*3/uL (0.00-0.01); Platelet Count 332 X 10*3/uL (140-440); RBC 5.48 X 10*6/uL (4.10-5.20); RDW 12.7 % (11.5-14.5); WBC 8.77 X 10*3/uL (4.50-10.00)
== END | disposition home or self-care (01) ==
LOC: LABPAT 10:02
PROVIDERS: ATTEND Internal Medicine Interventional Cardiology
DX: Z01.812 Encounter for preprocedural laboratory examination (principal); I70.213 Atherosclerosis of native arteries of extremities with intermittent claudication, bilateral legs
CPT/HCPCS: 36415; 80051; 82565; 84520; 85027

== ENCOUNTER 2023-09-15 07:31 | Day surgery (SDC) | payer BC ==
[~2023-09-15 07:31] MED LIST: ALPRAZolam 0.25 MG TAB PO PRN; ASPIRIN 325 MG TAB PO PRN; EMPTY BAG 1 BAG with SODIUM CHLORIDE 0.9% 1,000 ML IV SCH; HEPARIN SODIUM,PORCINE (1 ML) 2,500 UNIT in SODIUM CHLORIDE 0.9% 250 ML IRRIGATION PRN; HEPARIN SODIUM,PORCINE 10,000 UNIT in SODIUM CHLORIDE 0.9% 1,000 ML IRRIGATION PRN; ZOLPIDEM 5 MG TAB PO PRN
[2023-09-15] MEDS: SODIUM CHLORIDE 0.9% 1,000 ML IV ONE (07:38)
[2023-09-15 07:58] LABS: Glucose,Whole Blood 250 mg/dL (70-110)
[2023-09-15] MEDS: INSULIN ASPART (NovoLOG) 100 UNIT/ML VIAL SQ ONE (07:58)
[2023-09-15 08:21] VITALS: RESP 16; TEMP 98
[2023-09-15] MEDS: lisinopriL 20 MG TAB PO SCH (08:29)
[2023-09-15] MEDS: METOPROLOL TARTRATE 50 MG TAB PO SCH (08:29)
[2023-09-15] MEDS ORDERED: LIDOCAINE 1% INJ 10MG/ML (20 ML MDV) ONE (08:36)
[2023-09-15] MEDS: MIDAZOLAM 2 MG/2 ML VIAL IVP ONE (09:17)
[2023-09-15] MEDS: LIDOCAINE 1% INJ 10MG/ML (20 ML MDV) SQ ONE (09:18)
[2023-09-15] MEDS: IOPAMIDOL-370 100ML BTL INJ ONE (09:28)
[2023-09-15] MEDS ORDERED: NALOXONE 0.4 MG/ML 1 ML VIAL IVP PRN (09:33)
--- NOTE | 2023-09-15 09:36 | P.PCN ---
Date of Procedure: 09/15/23 Operative Findings: AN ABDOMINAL AORTOGRAM AND BILATERAL LOWER EXTREMITIES RUNOFF PERFORMING PHYSICIAN: Mark Dougherty MD PROCEDURE PERFORMED: 1. An abdominal aortogram 2. Bilateral lower extremities runoff 3. Ultrasound-guided access of the right common femoral artery INDICATION: Bilateral lower extremities intermittent claudication COMPLICATION: None LEVEL OF SEDATION: Moderate was sedation length of 12 minutes APPROACH: Right common femoral artery PROCEDURE DESCRIPTION: After obtaining informed consent and explaining the procedure benefits, risks, and complications, the patient was brought to the cardiac laborer laboratory. The right groin was prepped and draped in sterile fashion. The right common femoral artery was cannulated using micropuncture technique, under ultrasound guidance. A micropuncture wire was advanced, and the micropuncture sheath was advanced over the wire, then the micropuncture sheath was exchanged over an 0.35 wire into a 5-Mauritian sheath dilator assembly then the wire and dilator were removed and sheath was flushed. We did an abdominal aortogram and bilateral lower extremities runoff using 5- Mauritian pigtail catheter using a power injection. The catheter was initially placed at the level of the renal arteries, and it was pulled into above the bifurcation of the aorta into right and left common iliac arteries. The procedure was completed and there was no complications. SELECTIVE PERIPHERAL ANGIOGRAM: The abdominal aorta: Has mild disease only The common iliac arteries: Have mild disease only The external iliac arteries: Have mild disease only The internal iliac arteries: Are patent The common femoral arteries: Have mild disease only Superficial femoral arteries: Severely and diffusely diseased up to about 80 to 90% Popliteal arteries: Severely and diffusely diseased as well Below the knees: 3 vessels below the knee bilaterally CONCLUSION: Severe bilateral femoropopliteal disease as described above Severe below the knee disease bilaterally as well POSTPROCEDURE MANAGEMENT: STEAM DRIER TENDER
[2023-09-15] MEDS ORDERED: SODIUM CHLORIDE 0.9% 1,000 ML in EMPTY BAG 1 BAG IV SCH (09:45)
[2023-09-15] MEDS: ENALAPRILAT 1.25 MG/ML 1 ML VIAL ONE (09:46)
[2023-09-15] MEDS: hydrALAZINE HCL 20 MG/ML 1 ML VIAL ONE (09:46)
[2023-09-15] MEDS: ENALAPRILAT 1.25 MG/ML 1 ML VIAL IVP STA ×2 (09:46→10:00)
[2023-09-15] MEDS: hydrALAZINE HCL 20 MG/ML 1 ML VIAL IVP STA ×2 (09:46→10:00)
[2023-09-15 15:52] VITALS: BP 152/75; PULSE 75
== END 2023-09-15 15:30 ==
LOC: CATHCVL 07:31
PROVIDERS: ATTEND Internal Medicine Interventional Cardiology
DX: I70.213 Atherosclerosis of native arteries of extremities with intermittent claudication, bilateral legs (principal); I10 Essential (primary) hypertension; E78.5 Hyperlipidemia, unspecified; E11.9 Type 2 diabetes mellitus without complications; F17.210 Nicotine dependence, cigarettes, uncomplicated; Z79.899 Other long term (current) drug therapy
CPT/HCPCS: 36200; 75625; 75716; 76937; C1769 ×4; C1894; J2250; J0360; J2001; Q9967

== ENCOUNTER 2023-10-11 08:35 | Day surgery (SDC) | payer BC ==
[2023-10-10 08:34] VITALS: BMI 22.1
[~2023-10-11 08:35] MED LIST changes: -EMPTY BAG 1 BAG with SODIUM CHLORIDE 0.9% 1,000 ML IV SCH
[2023-10-11] MEDS: EMPTY BAG 1 BAG with SODIUM CHLORIDE 0.9% 1,000 ML IV SCH (09:12)
[2023-10-11] MEDS: IV FLUID CONTINUATION 1,000 ML IV ONE ×2 (09:15→16:15)
[2023-10-11] MEDS: ALPRAZolam 0.5 MG TAB PO PRN (09:16)
[2023-10-11 09:37] LABS: Glucose,Whole Blood 261 mg/dL (70-110)
[2023-10-11] MEDS: INSULIN ASPART (NovoLOG) 100 UNIT/ML VIAL SQ SCH (09:39)
[2023-10-11 09:43] LABS: Basophils # (A) 0.1 k/uL (0-0.2); Basophils % (A) 1 %; Eosinophils # (A) 0.3 k/uL (0-0.7); Eosinophils % (A) 3 %; HCT 50.6 % (34.0-46.0); HGB 16.3 gm/dL (11.4-16.0); Lymphocytes # (A) 1.7 k/uL (1.0-4.8); Lymphocytes % (A) 18 %; MCH 30.6 pg (25.0-35.0); MCHC 32.3 g/dL (31.0-37.0); MCV 94.9 fL (80.0-100.0); Mean Platelet Volume 7.8; Monocytes # (A) 0.6 k/uL (0-1.0); Monocytes % (A) 6 %; Neutrophils # (A) 6.8 k/uL (1.3-7.7); Neutrophils % (A) 70 %; Platelet Count 311 k/uL (150-450); RBC 5.33 m/uL (3.80-5.40); RDW 13.1 % (11.5-15.5); WBC 9.7 k/uL (3.8-10.6)
[2023-10-11] MEDS: NICOTINE 14MG/24HR PATCH TRANSDERM STA (09:49)
[2023-10-11 10:00] LABS: African American GFR (CKD) >90 (>60 ml/min/1.73 sqM); Anion Gap 5 mmol/L; Blood Urea Nitrogen 7 mg/dL (7-17); Calcium 9.1 mg/dL (8.4-10.2); Carbon Dioxide 27 mmol/L (22-30); Chloride 104 mmol/L (98-107); Non-African American GFR(CKD) >90 (>60 ml/min/1.73 sqM); Sodium 136 mmol/L (137-145)
[2023-10-11 10:38] LABS: Potassium 5.6 mmol/L (3.5-5.1)
[2023-10-11 10:39] LABS: Glucose 253 mg/dL (74-99)
[2023-10-11] MEDS ORDERED: LIDOCAINE 1% INJ 10MG/ML (20 ML MDV) ONE (11:40)
[2023-10-11] MEDS ORDERED: HEPARIN SODIUM 1,000 UN/ML (10ML VL) ONE (12:09)
[2023-10-11] MEDS: MIDAZOLAM 2 MG/2 ML VIAL IVP ONE ×2 (12:12→12:43)
[2023-10-11] MEDS: LIDOCAINE 2% (PF) 20 MG/ML 5 ML VIAL SQ ONE (12:15)
[2023-10-11] MEDS: HEPARIN SODIUM 1,000 UN/ML (10ML VL) IVP ONE (12:20)
[2023-10-11] MEDS ORDERED: fentaNYL (PF) 50 MCG/ML 2 ML AMP ONE (12:26)
[2023-10-11] MEDS: fentaNYL (PF) 50 MCG/ML 2 ML AMP IVP ONE (12:27)
[2023-10-11] MEDS ORDERED: CLOPIDOGREL 75 MG TAB ONE (13:00)
[2023-10-11] MEDS: CLOPIDOGREL 75 MG TAB PO ONE (13:07)
[2023-10-11] MEDS ORDERED: ENALAPRILAT 1.25 MG/ML 1 ML VIAL ONE (13:19)
[2023-10-11] MEDS ORDERED: hydrALAZINE HCL 20 MG/ML 1 ML VIAL ONE (13:19)
[2023-10-11] MEDS: NITROGLYCERIN 1000MCG/10ML SYRINGE INTRACORON ONE (13:20)
[2023-10-11] MEDS: hydrALAZINE HCL 20 MG/ML 1 ML VIAL IVP ONE (13:22)
[2023-10-11] MEDS: ENALAPRILAT 1.25 MG/ML 1 ML VIAL IVP ONE (13:23)
[2023-10-11] MEDS: HYDROmorphone 1 MG/ML 1 ML SYRINGE IVP ONE (13:31)
[2023-10-11] MEDS ORDERED: niCARdipine 25 MG/10 ML VIAL ONE (13:42)
[2023-10-11] MEDS: niCARdipine Syringe (1,000 mcg/10 mL) INTRAARTER ONE (13:44)
[2023-10-11] MEDS: IOPAMIDOL-250 100ML BTL INTRAARTER ONE (14:03)
[2023-10-11] MEDS ORDERED: NALOXONE 0.4 MG/ML 1 ML VIAL IVP PRN (14:10)
[2023-10-11 14:58] LABS: Glucose,Whole Blood 229 mg/dL (70-110)
[2023-10-11] MEDS: HYDROcodone/APAP 10-325MG 1 EACH TAB PO PRN (15:36)
[2023-10-11] MEDS: ENALAPRILAT 1.25 MG/ML 1 ML VIAL IVP STA (15:59)
[2023-10-11] MEDS: hydrALAZINE HCL 20 MG/ML 1 ML VIAL IVP STA (16:18)
[2023-10-11] MEDS: ONDANSETRON 4 MG/2 ML VIAL IVP PRN (17:02)
[2023-10-11 17:40] LABS: Glucose,Whole Blood 212 mg/dL (70-110)
[2023-10-11] MEDS: GABAPENTIN 300 MG CAP PO SCH (20:47)
[2023-10-11] MEDS: ATORVASTATIN 40 MG TAB PO SCH (20:47)
[2023-10-11] MEDS: METOPROLOL TARTRATE 50 MG TAB PO SCH (20:48)
[2023-10-11] MEDS: SYMBICORT 160-4.5 MCG INHALER INHALATION SCH (21:53)
[2023-10-12] MEDS: PANTOPRAZOLE 40 MG TABLET PO SCH (05:40)
[2023-10-12 06:36] LABS: Glucose,Whole Blood 218 mg/dL (70-110)
[2023-10-12 07:01] LABS: Basophils # (A) 0.1 k/uL (0-0.2); Basophils % (A) 1 %; Eosinophils # (A) 0.1 k/uL (0-0.7); Eosinophils % (A) 2 %; HCT 49.3 % (34.0-46.0); HGB 15.3 gm/dL (11.4-16.0); Lymphocytes # (A) 1.6 k/uL (1.0-4.8); Lymphocytes % (A) 16 %; MCH 29.8 pg (25.0-35.0); Mean Platelet Volume 7.7; Monocytes # (A) 0.7 k/uL (0-1.0); Monocytes % (A) 7 %; Neutrophils # (A) 7.2 k/uL (1.3-7.7); Neutrophils % (A) 73 %; Platelet Count 289 k/uL (150-450); RBC 5.13 m/uL (3.80-5.40); RDW 13.1 % (11.5-15.5); WBC 9.8 k/uL (3.8-10.6)
[2023-10-12 07:27] LABS: African American GFR (CKD) >90 (>60 ml/min/1.73 sqM); Anion Gap 7 mmol/L; Blood Urea Nitrogen 7 mg/dL (7-17); Calcium 9.2 mg/dL (8.4-10.2); Carbon Dioxide 25 mmol/L (22-30); Chloride 105 mmol/L (98-107); Glucose 230 mg/dL (74-99); Non-African American GFR(CKD) >90 (>60 ml/min/1.73 sqM); Potassium 4.1 mmol/L (3.5-5.1); Sodium 137 mmol/L (137-145)
[2023-10-12 09:18] VITALS: BP 174/77; PULSE 109; RESP 17; TEMP 98.2
[2023-10-12] MEDS: CLOPIDOGREL 75 MG TAB PO SCH (09:18)
[2023-10-12] MEDS: lisinopriL 20 MG TAB PO SCH (09:18)
[2023-10-12] MEDS: ASPIRIN 81 MG PO SCH (09:18)
--- NOTE | 2023-10-12 10:38 | P.PCN ---
Date of Procedure: 10/12/23 Operative Findings: PERCUTANEOUS PERIPHERAL INTERVENTION Performing physician Mark Dougherty M.D. Procedure performed 1. Successful balloon angioplasty and stenting of the right SFA/popliteal 2. Adjunctive use of atherectomy and lithotripsy balloon and intravascular ultrasound 3. Right lower extremity angiogram and left common femoral artery angiogram 4. Ultrasound-guided access of the left common femoral artery Indication Severe right lower extremity intermittent claudication in this 63-year-old female patient who underwent an angiogram and that revealed subtotally occluded right SFA and critical left SFA disease. Approach Left common femoral artery Complications None Level of sedation Moderate with a sedation time of 110 minutes Procedure description After obtaining informed consent the patient was brought to the cardiac Construction Sales Representative. The left common femoral artery was cannulated using micropuncture technique under ultrasound guidance and the micropuncture wire passed easily then I placed a 6 Indonesian 70 cm sheath at the left common femoral artery. Subsequently I did select the right SFA using a 035 stiff Glidewire and the wire crossed over from the left to the right under fluoroscopy guidance. Subsequently I did advance the sheath over the wire and the dilator was inside the sheath. Right lower extremity angiogram was performed and showed two-vessel runoff below the knee on the right with peroneal and posterior tibial artery with severe disease involving the right SFA and right popliteal with right common femoral artery appeared to be normal. Anticoagulation was initiated using heparin with continuous ACT monitoring. I did wired the the right SFA and right popliteal using a [address] wire. Subsequently I did intravascular ultrasound which showed a diameter around 6 mm and the artery was not heavily calcified from inside but significant amount of soft plaque was identified. Because there was a concern about 1 spot in the right SFA appeared to be very tight with difficulty wiring and significant friction I decided to do balloon angioplasty on that segment using lithotripsy balloon which was a 6 mm balloon. After that I was able to do atherectomy using the Hawk 1 device with extraction of significant amount of plaque. Subsequently a balloon angioplasty was performed using a chocolate balloon. An angiogram was performed and showed an area of severe residual stenosis involving the mid right SFA which I decided to stent using 7 mm x 60 mm Zilver PTX drug-coated stent where the stent was positioned under fluoroscopy guidance and deployed under fluoroscopy guidance and postdilated as well using 6 mm balloon. Final angiogram showed good angiographic results and the procedure was completed with no complication. Subsequently did exchange my long sheath into short sheath using 035 stiff Glidewire before I did selective left common femoral artery angiogram. The procedure was completed with no complication. Postprocedure management 1. Dual antiplatelet therapy 2. Aggressive cholesterol control 3. Risk factors modification 4. Follow-up with the patient
--- NOTE | 2023-10-12 10:55 | P.DS ---
Providers Attending physician: Mark Dougherty Primary care physician: [facility] Course: The patient is a pleasant 63-year-old female patient who underwent yesterday successful PUBLIC RELATIONS DIRECTOR of the right SFA from left femoral approach with an excellent angiographic results and no complication The patient was seen and evaluated this morning. She is asymptomatic beside discomfort in the right thigh likely secondary to angioplasty because she did have some discomfort during the angioplasty but the right foot is warmer and that she is feeling overall better. The left groin is soft with mild tenderness but no bruises. The patient will be discharged home on anticoagulation using Eliquis and also antiplatelet. I will follow-up with the patient next week in the office. Also she will be discharged on statin. Plan - Discharge Summary Discharge Rx Participant: No New Discharge Prescriptions: New Rivaroxaban [Xarelto] 2.5 mg PO BID #180 tablet Continue Aspirin EC [Ecotrin Low Dose] 81 mg PO DAILY Atorvastatin Calcium 40 mg PO HS HYDROcodone/APAP 10-325MG [[place] 10-325] 1 tab PO BID PRN PRN Reason: Pain lisinopriL [Zestril] 20 mg PO DAILY Metoprolol Tartrate [Lopressor] 50 mg PO BID Omeprazole [PriLOSEC] 20 mg PO AC-BRKFST Budesonide/Formoterol Fumarate [Symbicort 160-4.5 Mcg Inhaler] 2 puff INHALATION RT-BID Gabapentin [Neurontin] 300 mg PO BID metFORMIN HCL [Glucophage] 500 mg PO TID Discharge Medication List Aspirin EC [Ecotrin Low Dose] 81 mg PO DAILY 03/03/22 [History] Atorvastatin Calcium 40 mg PO HS 03/03/22 [History] Budesonide/Formoterol Fumarate [Symbicort 160-4.5 Mcg Inhaler] 2 puff INHALATION RT-BID 03/03/22 [History] HYDROcodone/APAP 10-325MG [[place]stock 10-325] 1 tab PO BID PRN 03/03/22 [History] Metoprolol Tartrate [Lopressor] 50 mg PO BID 03/03/22 [History] lisinopriL [Zestril] 20 mg PO DAILY 03/03/22 [History] Gabapentin [Neurontin] 300 mg PO BID 09/13/23 [History] Omeprazole [PriLOSEC] 20 mg PO AC-BRKFST 09/13/23 [History] metFORMIN HCL [Glucophage] 500 mg PO TID 10/11/23 [History] Rivaroxaban [Xarelto] 2.5 mg PO BID #180 tablet 10/12/23 [Rx] Follow up Appointment(s)/Referral(s): Mark Dougherty MD [STAFF PHYSICIAN] - 1 Week (Office will call with appointment date and time) Patient Instructions/Handouts: Coronary Intravascular Stent Placement (DC) Activity/Diet/Wound Care/Special Instructions: NO METFORMIN FOR TWO DAY. Discharge Disposition: HOME SELF-CARE
== END 2023-10-12 10:00 | disposition home or self-care (01) ==
LOC: CATHCVL 08:35 → 3SCARD 17:30 → CATHCVL 10-12 10:00
PROVIDERS: ATTEND Internal Medicine Interventional Cardiology
DX: I70.213 Atherosclerosis of native arteries of extremities with intermittent claudication, bilateral legs (principal); Z79.01 Long term (current) use of anticoagulants; Z79.82 Long term (current) use of aspirin; Z79.84 Long term (current) use of oral hypoglycemic drugs
CPT/HCPCS: 94640; 76937; 37252; 80048 ×2; 85025 ×2; C1894 ×2; C1769 ×4; C1725 ×3; C1714; C1753; C1874; C2623; C9767; S4990; J2250; J0360; J2405; J3010; J1644; J1170; Q9966; J2001; J2305

== ENCOUNTER 2023-11-08 07:17 | Day surgery (SDC) | payer BC ==
[2023-10-27 15:50] VITALS: BMI 21.6
[2023-11-08] MEDS: EMPTY BAG 1 BAG with SODIUM CHLORIDE 0.9% 1,000 ML IV SCH (07:49)
[2023-11-08] MEDS: IV FLUID CONTINUATION 1,000 ML IV ONE (07:49)
[2023-11-08 07:55] LABS: Glucose,Whole Blood 269 mg/dL (70-110)
[2023-11-08] MEDS: INSULIN ASPART (NovoLOG) 100 UNIT/ML VIAL SQ SCH (07:59)
[2023-11-08] MEDS: ALPRAZolam 0.5 MG TAB PO PRN (09:49)
[2023-11-08] MEDS: MIDAZOLAM 2 MG/2 ML VIAL IVP ONE (13:20)
[2023-11-08] MEDS: LIDOCAINE 1% INJ 10MG/ML (20 ML MDV) SQ ONE (13:20)
[2023-11-08] MEDS ORDERED: MORPHINE SULFATE 4 MG/ML SYRINGE ONE (13:27)
[2023-11-08] MEDS: MORPHINE SULFATE 4 MG/ML SYRINGE IVP ONE ×2 (13:28→13:50)
[2023-11-08] MEDS: HEPARIN SODIUM 1,000 UN/ML (10ML VL) IVP ONE (13:34)
[2023-11-08] MEDS ORDERED: niCARdipine 25 MG/10 ML VIAL ONE (13:53)
[2023-11-08] MEDS: niCARdipine Syringe (1,000 mcg/10 mL) INTRAARTER ONE (13:59)
[2023-11-08] MEDS: NITROGLYCERIN 1000MCG/10ML SYRINGE INTRAARTER ONE (13:59)
[2023-11-08] MEDS ORDERED: CLOPIDOGREL 75 MG TAB ONE (14:01)
[2023-11-08] MEDS: HYDROmorphone 1 MG/ML 1 ML SYRINGE IVP ONE (14:04)
[2023-11-08] MEDS: IOPAMIDOL-370 100ML BTL INJ ONE (14:05)
[2023-11-08] MEDS ORDERED: NALOXONE 0.4 MG/ML 1 ML VIAL IVP PRN (14:10)
[2023-11-08] MEDS: CLOPIDOGREL 75 MG TAB PO ONE (14:10)
--- NOTE | 2023-11-08 14:21 | P.PCN ---
Date of Procedure: 11/08/23 Operative Findings: PERCUTANEOUS PERIPHERAL INTERVENTION Performing physician Mark Dougherty M.D. Procedure performed 1. Successful angioplasty and stenting of the left SFA 2. Adjunctive use of atherectomy and intravascular ultrasound 3. Left lower extremity angiogram and right common femoral artery angiogram 4. Ultrasound-guided access of the right common femoral artery Indication Severe left lower extremity intermittent claudication in this 63-year-old female patient who is known to have severe left SFA disease Approach Right common femoral artery Complications None Level of sedation Moderate with a sedation time of 42 minutes Procedure description After obtaining informed consent the patient was brought to the cardiac Twist Tester. The right common femoral artery was cannulated using micropuncture technique under ultrasound guidance a micropuncture wire passed easily then I placed a 6 Russian 11 cm sheath which was subsequently changed into a 6 Russian 70 cm sheath using a 035 stiff Glidewire. At that point anticoagulation was initiated using heparin with continuous ACT monitoring. Subsequently I did advance a 5 Russian rim catheter over 035 stiff Glidewire and the wire was directed to the left common femoral artery followed by the catheter followed by the sheath. Left lower extremity angiogram was performed and showed critical disease involving the right SFA and right popliteal. I did wired the lesion using a 014 wire I did intravascular ultrasound which showed a soft lesion with a diameter around 5.5 mm. Predilatation was performed using 5 mm balloon with an angiogram showing flow-limiting dissection covered with a stent and that was 6.0 x 140 mm Zilver PTX drug-coated stent which was deployed under fluoroscopy guidance and postdilated using 5 mm balloon. Final angiogram showed excellent angiographic results and the procedure was completed with no complication. Subsequently I did exchange the long sheath into short sheath using a 035 stiff Glidewire before I did selective right common femoral artery angiogram. The procedure was completed with no complication Postprocedure management 1. Dual antiplatelet therapy 2. Aggressive cholesterol control 3. Risk factors modification 4. Follow-up with the patient
--- NOTE | 2023-11-08 14:25 | IR ---
EXAMINATION TYPE: IR bellhop service captain femoral popliteal DATE OF EXAM: 11/08/2023 COMPARISON: NONE HISTORY: Fluoroscopy time. Fluoroscopy was provided to the referring clinician.
[2023-11-08 16:21] LABS: Glucose,Whole Blood 177 mg/dL (70-110)
[2023-11-08] MEDS: SODIUM CHLORIDE 0.9% 1,000 ML in EMPTY BAG 1 BAG IV SCH (16:55)
[2023-11-08 19:38] VITALS: RESP 16
[2023-11-08 20:02] LABS: Glucose,Whole Blood 366 mg/dL (70-110)
[2023-11-08] MEDS: SYMBICORT 160-4.5 MCG INHALER INHALATION SCH (20:11)
[2023-11-08] MEDS: ATORVASTATIN 40 MG TAB PO SCH (20:49)
[2023-11-08] MEDS: GABAPENTIN 300 MG CAP PO SCH (20:49)
[2023-11-08] MEDS: CLOPIDOGREL 75 MG TAB PO SCH (20:49)
[2023-11-08] MEDS: METOPROLOL TARTRATE 50 MG TAB PO SCH (20:49)
[2023-11-09 05:12] VITALS: PULSE 83
[2023-11-09] MEDS: lisinopriL 20 MG TAB PO SCH (05:17)
[2023-11-09 05:49] LABS: Glucose,Whole Blood 273 mg/dL (70-110)
[2023-11-09] MEDS: PANTOPRAZOLE 40 MG TABLET PO SCH (06:49)
[2023-11-09 07:36] VITALS: BP 180/83; TEMP 98.2
[2023-11-09] MEDS: HYDROcodone/APAP 10-325MG 1 EACH TAB PO PRN (08:00)
[2023-11-09] MEDS: ASPIRIN 81 MG PO SCH (08:00)
[2023-11-09 08:27] LABS: Basophils # (A) 0.1 k/uL (0-0.2); Basophils % (A) 1 %; Eosinophils # (A) 0.3 k/uL (0-0.7); Eosinophils % (A) 3 %; HCT 45.5 % (34.0-46.0); HGB 14.1 gm/dL (11.4-16.0); Lymphocytes # (A) 1.3 k/uL (1.0-4.8); Lymphocytes % (A) 15 %; MCH 30.2 pg (25.0-35.0); MCV 97.5 fL (80.0-100.0); Mean Platelet Volume 7.7; Monocytes # (A) 0.6 k/uL (0-1.0); Monocytes % (A) 7 %; Neutrophils # (A) 6.2 k/uL (1.3-7.7); Neutrophils % (A) 72 %; Platelet Count 287 k/uL (150-450); RBC 4.67 m/uL (3.80-5.40); RDW 13.2 % (11.5-15.5); WBC 8.6 k/uL (3.8-10.6)
[2023-11-09 08:38] LABS: African American GFR (CKD) >90 (>60 ml/min/1.73 sqM); Anion Gap 4 mmol/L; Blood Urea Nitrogen 10 mg/dL (7-17); Calcium 8.8 mg/dL (8.4-10.2); Carbon Dioxide 29 mmol/L (22-30); Chloride 102 mmol/L (98-107); Glucose 286 mg/dL (74-99); Non-African American GFR(CKD) >90 (>60 ml/min/1.73 sqM); Potassium 4.4 mmol/L (3.5-5.1); Sodium 135 mmol/L (137-145)
--- NOTE | 2023-11-09 21:46 | P.DS ---
Providers Attending physician: Mark Dougherty Primary care physician: [facility] Course: The patient is a pleasant 63-year-old female patient who was admitted to the hospital yesterday and underwent a successful percutaneous peripheral intervention of the left SFA/popliteal with good angiographic results and with no complication The patient was seen and evaluated this morning. She is asymptomatic. She is hemodynamically stable beside the pressure being elevated but she is slightly anxious and would like to be discharged home. The right groin is soft and nontender with no bruises. The left foot is warm. From the cardiovascular standpoint of view, the patient can be discharged home on dual antiplatelet therapy and statin and will follow-up with the patient next week in the office Plan - Discharge Summary Discharge Rx Participant: No New Discharge Prescriptions: Continue Aspirin EC [Ecotrin Low Dose] 81 mg PO DAILY Atorvastatin Calcium 40 mg PO HS HYDROcodone/APAP 10-325MG [[place] 10-325] 1 tab PO BID PRN PRN Reason: Pain lisinopriL [Zestril] 20 mg PO DAILY Metoprolol Tartrate [Lopressor] 50 mg PO BID Omeprazole [PriLOSEC] 20 mg PO AC-BRKFST Rivaroxaban [Xarelto] 2.5 mg PO BID #180 tablet Budesonide/Formoterol Fumarate [Symbicort 160-4.5 Mcg Inhaler] 2 puff INHALATION RT-BID Gabapentin [Neurontin] 300 mg PO BID Clopidogrel [Plavix] 75 mg PO HS Discontinued metFORMIN HCL [Glucophage] 500 mg PO TID Discharge Medication List Aspirin EC [Ecotrin Low Dose] 81 mg PO DAILY 03/03/22 [History] Atorvastatin Calcium 40 mg PO HS 03/03/22 [History] Budesonide/Formoterol Fumarate [Symbicort 160-4.5 Mcg Inhaler] 2 puff INHALATION RT-BID 03/03/22 [History] HYDROcodone/APAP 10-325MG [[place] 10-325] 1 tab PO BID PRN 03/03/22 [History] Metoprolol Tartrate [Lopressor] 50 mg PO BID 03/03/22 [History] lisinopriL [Zestril] 20 mg PO DAILY 03/03/22 [History] Gabapentin [Neurontin] 300 mg PO BID 09/13/23 [History] Omeprazole [PriLOSEC] 20 mg PO AC-BRKFST 05/08/24 [History] Rivaroxaban [Xarelto] 2.5 mg PO BID #180 tablet 10/12/23 [Rx] Clopidogrel [Plavix] 75 mg PO HS 10/27/23 [History] Follow up Appointment(s)/Referral(s): Mark Dougherty MD [STAFF PHYSICIAN] - 1 Week Patient Instructions/Handouts: Peripheral Vascular Disease (DC), Peripheral Vascular Stent Placement (GEN)
--- NOTE | 2023-11-22 14:14 | P.PCN ---
Date of Procedure: 11/22/23 Operative Findings: This is an addendum on the procedure was performed on the left femoral artery previously. The patient underwent an atherectomy of the left SFA using the Hawk 1 device.
== END 2023-11-09 08:53 ==
LOC: CATHCVL 07:17 → 3SCARD 14:02 → CATHCVL 11-09 08:53
PROVIDERS: ATTEND Internal Medicine Interventional Cardiology
DX: I70.212 Atherosclerosis of native arteries of extremities with intermittent claudication, left leg (principal); Z79.01 Long term (current) use of anticoagulants; Z79.02 Long term (current) use of antithrombotics/antiplatelets; Z79.82 Long term (current) use of aspirin; Z79.84 Long term (current) use of oral hypoglycemic drugs
CPT/HCPCS: 37227; 37252; 80048; 85025; C1894 ×2; C1769 ×3; C1714; C1753; C1725; C1874; J2250; J2270; J2001; J1644; J1170; Q9967; J2305

== ENCOUNTER 2023-12-29 12:48 | Inpatient (IN) | payer BC ==
[~2023-12-29 12:48] MED LIST changes: -ALPRAZolam 0.25 MG TAB PO PRN; -ASPIRIN 325 MG TAB PO PRN; -HEPARIN SODIUM,PORCINE (1 ML) 2,500 UNIT in SODIUM CHLORIDE 0.9% 250 ML IRRIGATION PRN; -HEPARIN SODIUM,PORCINE 10,000 UNIT in SODIUM CHLORIDE 0.9% 1,000 ML IRRIGATION PRN; +PIPERACILLIN-TAZOBACTAM 3.375 GM VIAL ONE; +SODIUM CHLORIDE 0.9% 1,000 ML BAG ONE; +SODIUM CHLORIDE 0.9% 100 ML BAG ONE; +SODIUM CHLORIDE 0.9% 250 ML BAG ONE; +VANCOMYCIN 1,000 MG VIAL ONE; +VANCOMYCIN 500 MG VIAL ONE; -ZOLPIDEM 5 MG TAB PO PRN
[2023-12-29] MEDS ORDERED: MORPHINE SULFATE 4 MG/ML SYRINGE ONE ×4 (13:33→23:59)
[2023-12-29] MEDS ORDERED: VANCOMYCIN 1,000 MG VIAL ONE ×2 (13:55→23:59)
[2023-12-29] MEDS ORDERED: SODIUM CHLORIDE 0.9% 250 ML BAG ONE ×2 (13:55→23:59)
[2023-12-29] MEDS ORDERED: VANCOMYCIN 500 MG VIAL ONE ×2 (13:55→23:59)
[2023-12-29] MEDS ORDERED: AMPICILLIN-SULBACTAM 3 GM VIAL ONE (18:46)
[2023-12-30] MEDS ORDERED: AMPICILLIN-SULBACTAM 3 GM VIAL ONE ×3 (03:42→23:59)
[2023-12-30] MEDS ORDERED: MORPHINE SULFATE 4 MG/ML SYRINGE ONE ×2 (07:42→23:59)
[2023-12-30] MEDS ORDERED: SODIUM CHLORIDE 0.9% 100 ML BAG IV ONE (23:59)
[2023-12-30] MEDS ORDERED: ASPIRIN 81 MG ONE (23:59)
[2023-12-30] MEDS ORDERED: SODIUM CHLORIDE 0.9% 250 ML BAG ONE (23:59)
[2023-12-30] MEDS ORDERED: INSULIN ASPART (NovoLOG) 100 UNIT/ML VIAL SQ ONE (23:59)
[2023-12-30] MEDS ORDERED: GABAPENTIN 300 MG CAP ONE (23:59)
[2023-12-30] MEDS ORDERED: PANTOPRAZOLE 40 MG TABLET PO ONE (23:59)
[2023-12-30] MEDS ORDERED: lisinopriL 20 MG TAB ONE (23:59)
[2023-12-30] MEDS ORDERED: metFORMIN 500 MG TAB ONE (23:59)
[2023-12-30] MEDS ORDERED: NICOTINE 14MG/24HR PATCH TRANSDERM ONE (23:59)
[2023-12-30] MEDS ORDERED: CLOPIDOGREL 75 MG TAB ONE (23:59)
[2023-12-30] MEDS ORDERED: ATORVASTATIN 40 MG TAB ONE (23:59)
[2023-12-30] MEDS ORDERED: METOPROLOL TARTRATE 50 MG TAB ONE (23:59)
[2023-12-30] MEDS ORDERED: VANCOMYCIN 1,000 MG VIAL ONE (23:59)
[2023-12-30] MEDS ORDERED: ENOXAPARIN 40 MG/0.4 ML SYRINGE SQ ONE (23:59)
[2023-12-31] MEDS ORDERED: NALOXONE 0.4 MG/ML 1 ML VIAL IVP PRN
[2023-12-31] MEDS ORDERED: ACETAMINOPHEN TAB 325 MG TAB PO PRN
[2023-12-31] MEDS ORDERED: DEXTROSE 50% SYRINGE 50 ML IVP PRN ×2
[2023-12-31] MEDS: AMPICILLIN-SULBACTAM 3 GM in SODIUM CHLORIDE 0.9% 100 ML IVPB SCH (04:41)
[2023-12-31] MEDS: ATORVASTATIN 40 MG TAB PO SCH (04:41)
[2023-12-31 06:17] LABS: ALT 12 U/L (4-34); AST 14 U/L (14-36); African American GFR (CKD) >90 (>60 ml/min/1.73 sqM); Albumin 2.7 g/dL (3.5-5.0); Albumin/Globulin Ratio 1.1; Alkaline Phosphatase 170 U/L (38-126); Anion Gap 5 mmol/L; Blood Urea Nitrogen 8 mg/dL (7-17); Calcium 8.6 mg/dL (8.4-10.2); Carbon Dioxide 23 mmol/L (22-30); Chloride 106 mmol/L (98-107); Globulin 2.4 g/dL; Glucose 238 mg/dL (74-99); Non-African American GFR(CKD) >90 (>60 ml/min/1.73 sqM); Phosphorus 3.9 mg/dL (2.5-4.5); Potassium 4.1 mmol/L (3.5-5.1); Sodium 134 mmol/L (137-145); Total Bilirubin 0.3 mg/dL (0.2-1.3); Total Protein 5.1 g/dL (6.3-8.2)
[2023-12-31 06:32] LABS: Basophils % (A) 0 %; Eosinophils # (A) 0.1 k/uL (0-0.7); Eosinophils % (A) 2 %; HCT 38.4 % (34.0-46.0); HGB 12.4 gm/dL (11.4-16.0); Lymphocytes # (A) 1.6 k/uL (1.0-4.8); Lymphocytes % (A) 19 %; MCH 30.1 pg (25.0-35.0); MCHC 32.2 g/dL (31.0-37.0); MCV 93.4 fL (80.0-100.0); Monocytes # (A) 0.8 k/uL (0-1.0); Monocytes % (A) 9 %; Neutrophils # (A) 5.8 k/uL (1.3-7.7); Neutrophils % (A) 68 %; Platelet Count 402 k/uL (150-450); RBC 4.11 m/uL (3.80-5.40); RDW 13.9 % (11.5-15.5); WBC 8.6 k/uL (3.8-10.6)
[2023-12-31] MEDS: SODIUM CHLORIDE 0.9% 1,000 ML IV SCH (07:12)
[2023-12-31] MEDS ORDERED: INSULIN ASPART (NovoLOG) 100 UNIT/ML VIAL SQ SCH (07:30)
[2023-12-31] MEDS: CLOPIDOGREL 75 MG TAB PO SCH (08:24)
[2023-12-31] MEDS: METOPROLOL TARTRATE 50 MG TAB PO SCH (08:24)
[2023-12-31] MEDS: PANTOPRAZOLE 40 MG TABLET PO SCH (08:24)
[2023-12-31] MEDS: ENOXAPARIN 40 MG/0.4 ML SYRINGE SQ SCH (08:24)
[2023-12-31] MEDS: INSULIN ASPART (NovoLOG) 100 UNIT/ML VIAL SQ SCH (08:24)
[2023-12-31] MEDS: lisinopriL 20 MG TAB PO SCH (08:24)
[2023-12-31] MEDS: NICOTINE 14MG/24HR PATCH TRANSDERM SCH (08:24)
[2023-12-31] MEDS: ASPIRIN 81 MG PO SCH (08:24)
[2023-12-31] MEDS: metFORMIN 500 MG TAB PO SCH (08:24)
[2023-12-31] MEDS: GABAPENTIN 300 MG CAP PO SCH (08:24)
[2023-12-31 09:18] LABS: Chol/HDL Ratio 3.21 Ratio; LDL Cholesterol,Calculated 34.2 mg/dL (0.0-131.0)
--- NOTE | 2023-12-31 10:36 | P.PN ---
Subjective Progress Note Date: 12/31/23 This is a 63-year-old female patient presented to [facility] with complaint of open wound on right big toe and severe right foot pain. 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 Patient has past medical history of hypertension, hyperlipidemia, oas-idrsjho-kmrzqfups diabetes mellitus, peripheral artery disease with previous angioplasty and stent placement and coronary artery disease with previous history of angioplasty and stent placement patient is currently 1 pack/day smoker denies any alcohol or drug use. Patient underwent debridement of right greater toe on 12/29/2023 and is currently being followed by infectious disease services maintained on Unasyn and vancomycin. On 12/31/2023 patient is alert and oriented x 3. Patient reports improvement with redness and erythema. Dressing is currently clean dry and intact patient remains on IV antibiotics of Vanco and Unasyn. Infectious disease services is following. Current vital signs temp 98.0, heart rate 80, respiratory rate 20, blood pressure 132/76 with a pulse ox of 93% on room air. White blood cell 8.6, hemoglobin 12.4, creatinine 0.51 and bun 8 Objective - Vital Signs Vital signs: Vital Signs Temp 98.0 F 12/31/23 07:21 Pulse 80 12/31/23 07:21 Resp 20 12/31/23 07:21 BP 132/76 12/31/23 07:21 Pulse Ox 93 L 12/31/23 07:21 FiO2 Intake & Output 12/30/23 12/31/23 12/31/23 18:59 06:59 18:59 Weight 63.796 kg Other: # Voids 2 - Exam Head normocephalic Neck supple Lungs clear to auscultation bilaterally no wheezing or crackles Heart regular rate and rhythm S1-S2, no rub or gallop Abdomen is soft nontender nondistended positive bowel sounds no hepatosplenomeg mary Extremities no edema. Right foot dressing clean dry and intact Neuro alert and orientated to 3 - Labs CBC & Chem 7: 12/31/23 04:20 12/31/23 04:20 Labs: Abnormal Lab Results - Last 24 Hours (Table) 12/31/23 12/31/23 Range/Units 04:20 04:20 Sodium 134 L (137-145) mmol/L Creatinine 0.51 L (0.52-1.04) mg/dL Glucose 238 H (74-99) mg/dL Hemoglobin A1c 12.3 H (<=6.0) % Alkaline Phosphatase 170 H (38-126) U/L Total Protein 5.1 L (6.3-8.2) g/dL Albumin 2.7 L (3.5-5.0) g/dL HDL Cholesterol 28.00 L (40.00-60.00) mg/dL TSH 0.353 L (0.465-4.680) mIU/L Assessment and Plan Assessment: 1. Right big toe open wound with right foot cellulitis status postdebridement 2. History of peripheral artery disease 3. History of essential hypertension 4. History of hyperlipidemia 5. History of tkw-dpnuruu-loppojlmy diabetes mellitus 6. History of coronary artery disease 7. History of ongoing nicotine abuse DVT prophylaxis Lovenox. GI prophylaxis Protonix patient remains on IV antibiotics vancomycin and Unasyn Infectious disease and vascular services following Repeat labs ordered for a.m.
--- NOTE | 2023-12-31 12:08 | P.PN ---
Subjective Progress Note Date: 12/31/23 Principal diagnosis: great toe wound Patient seen and examined. Doing well and no issues overnight. Patient states pain is improved and wound is appearing better. Objective - Vital Signs Vital signs: Vital Signs Temp 98.0 F 12/31/23 07:21 Pulse 80 12/31/23 07:21 Resp 20 12/31/23 07:21 BP 132/76 12/31/23 07:21 Pulse Ox 93 L 12/31/23 07:21 FiO2 Intake & Output 12/30/23 12/31/23 12/31/23 18:59 06:59 18:59 Weight 63.796 kg Other: # Voids 2 - Exam Right great toe dressing is clean, dry and intact. Erythema is improved. Nonpalpable DP or PT pulse - Labs CBC & Chem 7: 12/31/23 04:20 12/31/23 04:20 Labs: Abnormal Lab Results - Last 24 Hours (Table) 12/31/23 12/31/23 Range/Units 04:20 04:20 Sodium 134 L (137-145) mmol/L Creatinine 0.51 L (0.52-1.04) mg/dL Glucose 238 H (74-99) mg/dL Hemoglobin A1c 12.3 H (<=6.0) % Alkaline Phosphatase 170 H (38-126) U/L Total Protein 5.1 L (6.3-8.2) g/dL Albumin 2.7 L (3.5-5.0) g/dL HDL Cholesterol 28.00 L (40.00-60.00) mg/dL TSH 0.353 L (0.465-4.680) mIU/L Assessment and Plan Assessment: Right great toe wound with osteomyelitis Peripheral arterial disease History of lower extremity revascularization Plan: Awaiting arterial Doppler results Will review previous angiograms now the computers have been reestablished for further intervention Continue local wound care and pain control.
[2023-12-31 12:13] LABS: Glucose,Whole Blood 305 mg/dL (70-110)
[2023-12-31] MEDS: VANCOMYCIN 1,250 MG in SODIUM CHLORIDE 0.9% 250 ML IVPB SCH (12:17)
[2023-12-31] MEDS: MORPHINE SULFATE 4 MG/ML SYRINGE IVP PRN (13:15)
[2023-12-31 17:03] LABS: Glucose,Whole Blood 143 mg/dL (70-110)
[2023-12-31 20:13] LABS: Glucose,Whole Blood 226 mg/dL (70-110)
--- NOTE | 2023-12-31 21:29 | P.PN ---
Subjective Progress Note Date: 12/31/23 Principal diagnosis: Reason for follow-up is right big toe diabetic foot infection with a right foot cellulitis Patient is a 63-year-old female with multiple comorbidities including diabetes mellitus hypertension presented to the hospital with significant pain and swelling to the right big toe diagnosed with right diabetic foot infection and cellulitis of the right foot. On today's evaluation that is 12/31/2023,the patient denies any fever or any chills, patient is breathing comfortably on room air, the patient denies chest pain shortness of breath and no significant cough, patient denies abdominal pain, no nausea vomiting or diarrhea. Patient still complaining of pain to the right foot slightly decreased in intensity. Patient white count is 8.6, creatinine 0.51 Objective - Vital Signs Vital signs: Vital Signs Temp 98.3 F 12/31/23 13:22 Pulse 71 12/31/23 13:22 Resp 20 12/31/23 13:22 BP 130/74 12/31/23 13:22 Pulse Ox 99 12/31/23 13:22 FiO2 Intake & Output 12/30/23 12/31/23 12/31/23 18:59 06:59 18:59 Weight 63.796 kg Other: # Voids 2 - Exam GENERAL DESCRIPTION: Middle-age female up in bed in no distress RESPIRATORY SYSTEM: Unlabored breathing , decreased breath sounds at bases HEART: S1 S2 regular rate and rhythm , ABDOMEN: Soft , no tenderness EXTREMITIES: Right foot is currently dressed - Labs CBC & Chem 7: 12/31/23 04:20 12/31/23 04:20 Labs: Abnormal Lab Results - Last 24 Hours (Table) 12/31/23 12/31/23 12/31/23 Range/Units 04:20 04:20 12:10 Sodium 134 L (137-145) mmol/L Creatinine 0.51 L (0.52-1.04) mg/dL Glucose 238 H (74-99) mg/dL POC Glucose (mg/dL) 305 H (70-110) mg/dL Hemoglobin A1c 12.3 H (<=6.0) % Alkaline Phosphatase 170 H (38-126) U/L Total Protein 5.1 L (6.3-8.2) g/dL Albumin 2.7 L (3.5-5.0) g/dL HDL Cholesterol 28.00 L (40.00-60.00) mg/dL TSH 0.353 L (0.465-4.680) mIU/L Assessment and Plan (1) Cellulitis of right foot Current Visit: Yes Status: Acute Code(s): L03.115 - CELLULITIS OF RIGHT LOWER LIMB SNOMED Code(s): 59145772742354626 (2) Diabetic infection of right foot Current Visit: Yes Status: Acute Code(s): E11.628 - TYPE 2 DIABETES MELLITUS WITH OTHER SKIN COMPLICATIONS; L08.9 - LOCAL INFECTION OF THE SKIN AND SUBCUTANEOUS TISSUE, UNSP SNOMED Code(s): 074062936 Plan: 1patient presented to hospital with extensive right big toe diabetic foot infection with secondary cellulitis of the right foot 2-patient is covered with the vancomycin and Unasyn awaiting further workup per vascular surgery and culture to finalize Dictation was produced using [employer] dictation software. please excuse any grammatical, word or spelling errors. Time with Patient: Less than 30
[2024-01-01 07:15] LABS: Glucose,Whole Blood 201 mg/dL (70-110)
[2024-01-01] MEDS: HYDROcodone/APAP 10-325MG 1 EACH TAB PO PRN (08:38)
[2024-01-01 09:09] LABS: Basophils # (A) 0.05 X 10*3/uL (0.00-0.10); Basophils % (A) 0.6 %; Eosinophils # (A) 0.19 X 10*3/uL (0.04-0.35); Eosinophils % (A) 2.4 %; HCT 35.6 % (37.2-46.3); HGB 11.4 g/dL (12.0-15.0); Lymphocytes # (A) 2.21 X 10*3/uL (0.90-5.00); Lymphocytes % (A) 28.5 %; MCH 29.9 pg (27.0-32.0); MCV 93.4 FL (80.0-97.0); Mean Platelet Volume 9.7 FL (9.5-12.2); Monocytes # (A) 0.76 X 10*3/uL (0.20-1.00); Monocytes % (A) 9.8 %; NRBC Per 100 WBC 0 X 10*3/uL (0.00-0.01); Neutrophils # (A) 4.53 X 10*3/uL (1.80-7.70); Neutrophils % (A) 58.4 %; Platelet Count 407 X 10*3/uL (140-440); RBC 3.81 X 10*6/uL (4.10-5.20); RDW 13.4 % (11.5-14.5); WBC 7.76 X 10*3/uL (4.50-10.00)
[2024-01-01 10:31] LABS: African American GFR (CKD) >90 (>60 ml/min/1.73 sqM); Anion Gap 7 mmol/L; Blood Urea Nitrogen 6 mg/dL (7-17); Calcium 8.7 mg/dL (8.4-10.2); Carbon Dioxide 24 mmol/L (22-30); Chloride 106 mmol/L (98-107); Glucose 293 mg/dL (74-99); Non-African American GFR(CKD) >90 (>60 ml/min/1.73 sqM); Potassium 4.1 mmol/L (3.5-5.1); Sodium 137 mmol/L (137-145)
[2024-01-01 12:28] LABS: Glucose,Whole Blood 258 mg/dL (70-110)
[2024-01-01] MEDS: ASPIRIN 81 MG ONE ×3 (12:58→13:04)
[2024-01-01] MEDS: MORPHINE SULFATE 4 MG/ML SYRINGE ONE ×8 (12:58→13:06)
[2024-01-01 12:59] VITALS: BMI 22.0
[2024-01-01] MEDS: PANTOPRAZOLE 40 MG TABLET PO ONE ×3 (12:59→13:05)
[2024-01-01] MEDS: METOPROLOL TARTRATE 50 MG TAB ONE ×3 (12:59→13:05)
[2024-01-01] MEDS: CLOPIDOGREL 75 MG TAB ONE ×3 (12:59→13:05)
[2024-01-01] MEDS: HYDROcodone/APAP 10-325MG 1 EACH TAB ONE (13:01)
[2024-01-01] MEDS: VANCOMYCIN TROUGH DUE 1 EACH MISC MISCELLANE ONE (13:03)
--- NOTE | 2024-01-01 13:23 | P.PN ---
Subjective Progress Note Date: 01/01/24 Natali Klein, is a 63-year-old female patient presented to [facility] with complaint of open wound on right big toe and severe right foot pain. 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 Patient has past medical history of hypertension, hyperlipidemia, taz-iapdvdr-sryvxzkzg diabetes mellitus, peripheral artery disease with previous angioplasty and stent placement and coronary artery disease with previous history of angioplasty and stent placement patient is currently 1 pack/day smoker denies any alcohol or drug use. Patient underwent debridement of right greater toe on 12/29/2023 and is currently being followed by infectious disease services maintained on Unasyn and vancomycin. On 12/31/2023 patient is alert and oriented x 3. Patient reports improvement with redness and erythema. Dressing is currently clean dry and intact patient remains on IV antibiotics of Vanco and Unasyn. Infectious disease services is following. Current vital signs temp 98.0, heart rate 80, respiratory rate 20, blood pressure 132/76 with a pulse ox of 93% on room air. White blood cell 8.6, hemoglobin 12.4, creatinine 0.51 and bun 8 On 01/01/2024 patient was seen and examined on the medical floor she is alert and oriented in no distress she is still complaining of severe right foot pain otherwise she denies any complaints there is no fever or chills no headache or dizziness no chest pain no shortness of breath no cough no nausea or vomiting no abdominal pain no diarrhea no urinary symptoms, at this time patient is still maintained on Unasyn and vancomycin awaiting wound culture results infectious disease are following. Objective - Vital Signs Vital signs: Vital Signs Temp 98.0 F 01/01/24 07:15 Pulse 74 01/01/24 07:15 Resp 16 01/01/24 07:15 BP 139/79 01/01/24 07:15 Pulse Ox 91 L 01/01/24 07:15 FiO2 Intake & Output 12/31/23 01/01/24 01/01/24 18:59 06:59 18:59 Intake Total 1870 Balance 1870 Weight 63.796 kg Intake: Oral 1870 Other: Voiding Method Toilet # Voids 2 3 # Bowel Movements 0 - Exam In general patient is alert and oriented x 3 in no distress Head normocephalic and atraumatic Neck supple no JVD no goiter Lungs clear to auscultation bilaterally no wheezing or crackles Heart regular rate and rhythm S1-S2, no rub or gallop Abdomen is soft nontender nondistended positive bowel sounds no hepatosplenomegaly Extremities no edema. Right foot dressing clean dry and intact Neuro no gross focal deficit - Labs CBC & Chem 7: 01/01/24 02:45 01/01/24 09:48 Labs: Abnormal Lab Results - Last 24 Hours (Table) 12/31/23 12/31/23 01/01/24 Range/Units 17:02 20:11 02:45 RBC 3.81 L (4.10-5.20) X 10*6/uL Hgb 11.4 L (12.0-15.0) g/dL Hct 35.6 L (37.2-46.3) % BUN (7-17) mg/dL Creatinine (0.52-1.04) mg/dL Glucose (74-99) mg/dL POC Glucose (mg/dL) 143 H 226 H (70-110) mg/dL 01/01/24 01/01/24 01/01/24 Range/Units 07:13 09:48 12:27 RBC (4.10-5.20) X 10*6/uL Hgb (12.0-15.0) g/dL Hct (37.2-46.3) % BUN 6 L (7-17) mg/dL Creatinine 0.44 L (0.52-1.04) mg/dL Glucose 293 H (74-99) mg/dL POC Glucose (mg/dL) 201 H 258 H (70-110) mg/dL Assessment and Plan Plan: 1. Right big toe open wound with right foot cellulitis status postdebridement 2. History of peripheral artery disease 3. History of essential hypertension 4. History of hyperlipidemia 5. History of nju-pwdijlo-khkthyybk diabetes mellitus 6. History of coronary artery disease 7. History of ongoing nicotine abuse DVT prophylaxis Lovenox. GI prophylaxis Protonix patient remains on IV antibiotics vancomycin and Unasyn Infectious disease and vascular services following Repeat labs ordered for a.m.
[2024-01-01 17:09] LABS: Glucose,Whole Blood 317 mg/dL (70-110)
[2024-01-01] MEDS ORDERED: CALCIUM CARBONATE 500 MG CHEWABLE PO PRN (17:28)
[2024-01-01 20:28] LABS: Glucose,Whole Blood 137 mg/dL (70-110)
[2024-01-02 07:20] LABS: Glucose,Whole Blood 176 mg/dL (70-110)
--- NOTE | 2024-01-02 09:28 | P.PN ---
Subjective Progress Note Date: 01/01/24 Principal diagnosis: Reason for follow-up is right big toe diabetic foot infection with a right foot cellulitis Patient is a 63-year-old female with multiple comorbidities including diabetes mellitus hypertension presented to the hospital with significant pain and swelling to the right big toe diagnosed with right diabetic foot infection and cellulitis of the right foot. On today's evaluation that is 01/01/2024,the patient remains to be afebrile, patient is on room air not requiring supplemental oxygen and denies any shortness of breath no chest pain or cough.Patient denies having any nausea or vomiting, no abdominal pain and no diarrhea has been reported, pain to the right foot swelling redness has slightly decreased. Patient did have a creatinine 0.44 Objective - Vital Signs Vital signs: Vital Signs Temp 98.0 F 01/01/24 07:15 Pulse 74 01/01/24 07:15 Resp 16 01/01/24 07:15 BP 139/79 01/01/24 07:15 Pulse Ox 91 L 01/01/24 07:15 FiO2 Intake & Output 12/31/23 01/01/24 01/01/24 18:59 06:59 18:59 Intake Total 1870 Balance 1870 Weight 63.796 kg Intake: Oral 1870 Other: Voiding Method Toilet # Voids 2 3 # Bowel Movements 0 - Exam GENERAL DESCRIPTION: Middle-age female up in bed in no distress RESPIRATORY SYSTEM: Unlabored breathing , decreased breath sounds at bases HEART: S1 S2 regular rate and rhythm , ABDOMEN: Soft , no tenderness EXTREMITIES: Right big toe tip with necrotic changes redness of the right foot slightly decreased - Labs CBC & Chem 7: 01/01/24 02:45 01/01/24 09:48 Labs: Abnormal Lab Results - Last 24 Hours (Table) 12/31/23 12/31/23 01/01/24 Range/Units 17:02 20:11 02:45 RBC 3.81 L (4.10-5.20) X 10*6/uL Hgb 11.4 L (12.0-15.0) g/dL Hct 35.6 L (37.2-46.3) % BUN (7-17) mg/dL Creatinine (0.52-1.04) mg/dL Glucose (74-99) mg/dL POC Glucose (mg/dL) 143 H 226 H (70-110) mg/dL 01/01/24 01/01/24 01/01/24 Range/Units 07:13 09:48 12:27 RBC (4.10-5.20) X 10*6/uL Hgb (12.0-15.0) g/dL Hct (37.2-46.3) % BUN 6 L (7-17) mg/dL Creatinine 0.44 L (0.52-1.04) mg/dL Glucose 293 H (74-99) mg/dL POC Glucose (mg/dL) 201 H 258 H (70-110) mg/dL Assessment and Plan (1) Cellulitis of right foot Current Visit: Yes Status: Acute Code(s): L03.115 - CELLULITIS OF RIGHT LOWER LIMB SNOMED Code(s): 96715787726038041 (2) Diabetic infection of right foot Current Visit: Yes Status: Acute Code(s): E11.628 - TYPE 2 DIABETES MELLITUS WITH OTHER SKIN COMPLICATIONS; L08.9 - LOCAL INFECTION OF THE SKIN AND SUBCUTANEOUS TISSUE, UNSP SNOMED Code(s): 990234671 Plan: 1patient presented to hospital with extensive right big toe diabetic foot infection with secondary cellulitis of the right foot 2-patient currently waiting for further recommendation from vascular surgery and also waiting for the culture to finalize 3patient being treated with the vancomycin and Unasyn awaiting culture to fi nalize Dictation was produced using [employer] dictation software. please excuse any grammatical, word or spelling errors. Time with Patient: Less than 30
--- NOTE | 2024-01-02 10:01 | P.PN ---
Subjective Progress Note Date: 01/02/24 This is a 63-year-old female patient presented to [facility] with complaint of open wound on right big toe and severe right foot pain. 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 Patient has past medical history of hypertension, hyperlipidemia, pgv-yyskpex-jjigigmqd diabetes mellitus, peripheral artery disease with previous angioplasty and stent placement and coronary artery disease with previous history of angioplasty and stent placement patient is currently 1 pack/day smoker denies any alcohol or drug use. Patient underwent debridement of right greater toe on 12/29/2023 and is currently being followed by infectious disease services maintained on Unasyn and vancomycin. On 12/31/2023 patient is alert and oriented x 3. Patient reports improvement with redness and erythema. Dressing is currently clean dry and intact patient remains on IV antibiotics of Vanco and Unasyn. Infectious disease services is following. Current vital signs temp 98.0, heart rate 80, respiratory rate 20, blood pressure 132/76 with a pulse ox of 93% on room air. White blood cell 8.6, hemoglobin 12.4, creatinine 0.51 and bun 8 On 01/01/2024 patient is alert and oriented x 3. Patient reports pain improvement in lower extremity pain. Awaiting final cultures. Patient remains on IV antibiotics. Current vital signs temp 98.1, heart rate 72, respiratory rate 16, blood pressure 125/67 with a pulse ox of 95% on room air. Patient denies chest pain or shortness of breath. Patient denies nausea vomiting or diarrhea. Patient denies any urinary burning or frequency Objective - Vital Signs Vital signs: Vital Signs Temp 98.1 F 01/02/24 07:18 Pulse 72 01/02/24 07:18 Resp 16 01/02/24 07:18 BP 125/67 01/02/24 07:18 Pulse Ox 94 L 01/02/24 07:18 FiO2 Intake & Output 01/01/24 01/02/24 01/02/24 18:59 06:59 18:59 Intake Total 1620 540 Balance 1620 540 Weight 63.796 kg Intake: Oral 1620 540 Other: # Voids 3 - Exam Head normocephalic Neck supple Lungs clear to auscultation bilaterally no wheezing or crackles Heart regular rate and rhythm S1-S2, no rub or gallop Abdomen is soft nontender nondistended positive bowel sounds no hepatosplenomegaly Extremities no edema. Right foot dressing clean dry and intact Neuro alert and orientated to 3 - Labs CBC & Chem 7: 01/01/24 02:45 01/01/24 09:48 Labs: Abnormal Lab Results - Last 24 Hours (Table) 01/01/24 01/01/24 01/01/24 Range/Units 09:48 12:27 17:08 BUN 6 L (7-17) mg/dL Creatinine 0.44 L (0.52-1.04) mg/dL Glucose 293 H (74-99) mg/dL POC Glucose (mg/dL) 258 H 317 H (70-110) mg/dL 01/01/24 01/02/24 Range/Units 20:26 07:19 BUN (7-17) mg/dL Creatinine (0.52-1.04) mg/dL Glucose (74-99) mg/dL POC Glucose (mg/dL) 137 H 176 H (70-110) mg/dL Assessment and Plan Assessment: 1. Right big toe open wound with right foot cellulitis status postdebridement 2. History of peripheral artery disease 3. History of essential hypertension 4. History of hyperlipidemia 5. History of ssj-bgxgsft-jccumgnir diabetes mellitus 6. History of coronary artery disease 7. History of ongoing nicotine abuse DVT prophylaxis Lovenox. GI prophylaxis Protonix patient remains on IV antibiotics vancomycin and Unasyn Infectious disease and vascular services following Repeat labs ordered for a.m.
[2024-01-02 11:23] LABS: Glucose,Whole Blood 241 mg/dL (70-110)
--- NOTE | 2024-01-02 14:00 | P.PN ---
Subjective Progress Note Date: 01/02/24 Principal diagnosis: Reason for follow-up is right big toe diabetic foot infection with a right foot cellulitis Patient is a 63-year-old female with multiple comorbidities including diabetes mellitus hypertension presented to the hospital with significant pain and swelling to the right big toe diagnosed with right diabetic foot infection and cellulitis of the right foot. On today's evaluation that is 01/02/2024, the patient continues to be afebrile, the patient is on room air and breathing comfortably, the Pt denies having any chest pain or cough, the patient denies having any abdominal pain no vomiting or any diarrhea discomfort to the right foot is slightly decreased in intensity. No new labs obtained today initial culture positive for Citrobacter and Serratia Objective - Vital Signs Vital signs: Vital Signs Temp 98.1 F 01/02/24 07:18 Pulse 72 01/02/24 07:18 Resp 16 01/02/24 07:18 BP 125/67 01/02/24 07:18 Pulse Ox 94 L 01/02/24 07:18 FiO2 Intake & Output 01/01/24 01/02/24 01/02/24 18:59 06:59 18:59 Intake Total 1620 1020 Balance 1620 1020 Weight 63.796 kg Intake: Oral 1620 1020 Other: # Voids 3 - Exam GENERAL DESCRIPTION: Middle-age female up in bed in no distress RESPIRATORY SYSTEM: Unlabored breathing , decreased breath sounds at bases HEART: S1 S2 regular rate and rhythm , ABDOMEN: Soft , no tenderness EXTREMITIES: Right big toe tip with necrotic changes redness of the right foot slightly decreased - Labs CBC & Chem 7: 01/01/24 02:45 01/01/24 09:48 Labs: Abnormal Lab Results - Last 24 Hours (Table) 01/01/24 01/01/24 01/02/24 Range/Units 17:08 20:26 07:19 POC Glucose (mg/dL) 317 H 137 H 176 H (70-110) mg/dL 01/02/24 Range/Units 11:21 POC Glucose (mg/dL) 241 H (70-110) mg/dL Assessment and Plan (1) Cellulitis of right foot Current Visit: Yes Status: Acute Code(s): L03.115 - CELLULITIS OF RIGHT LOWER LIMB SNOMED Code(s): 33391069880248968 (2) Diabetic infection of right foot Current Visit: Yes Status: Acute Code(s): E11.628 - TYPE 2 DIABETES MELLITUS WITH OTHER SKIN COMPLICATIONS; L08.9 - LOCAL INFECTION OF THE SKIN AND S UBCUTANEOUS TISSUE, UNSP SNOMED Code(s): 964031416 Plan: 1patient presented to hospital with extensive right big toe diabetic foot infection with secondary cellulitis of the right foot 2-patient currently waiting for further recommendation from vascular surgery culture has been finalized with Serratia and Citrobacter 3we will discontinue Zosyn and vancomycin start the patient on cefepime 2 g every 8 hours Dictation was produced using [email or web address] dictation software. please excuse any grammatical, word or spelling errors. Time with Patient: Less than 30
--- NOTE | 2024-01-02 16:16 | P.PN ---
Subjective Progress Note Date: 01/02/24 Principal diagnosis: great toe wound Patient seen and examined. Doing well and no issues overnight. Pain controlled. Arterial Doppler results reviewed- TIMOTHY 0.8 on the right and 1.0 on the left. Objective - Vital Signs Vital signs: Vital Signs Temp 97.6 F 01/02/24 13:28 Pulse 64 01/02/24 13:28 Resp 20 01/02/24 13:28 BP 132/74 01/02/24 13:28 Pulse Ox 98 01/02/24 13:28 FiO2 Intake & Output 01/01/24 01/02/24 01/02/24 18:59 06:59 18:59 Intake Total 1620 1020 Balance 1620 1020 Weight 63.796 kg Intake: Oral 1620 1020 Other: # Voids 3 - Exam Right great toe dressing is clean, dry and intact. Erythema is improved. Nonpalpable DP or PT pulse Good capillary refill at the great toe. - Labs CBC & Chem 7: 01/01/24 02:45 01/01/24 09:48 Labs: Abnormal Lab Results - Last 24 Hours (Table) 01/01/24 01/01/24 01/02/24 Range/Units 17:08 20:26 07:19 POC Glucose (mg/dL) 317 H 137 H 176 H (70-110) mg/dL 01/02/24 Range/Units 11:21 POC Glucose (mg/dL) 241 H (70-110) mg/dL Assessment and Plan Assessment: Right great toe wound with osteomyelitis Peripheral arterial disease History of lower extremity revascularization Plan: Reviewed arterial Doppler and previous angiograms with the patient and her daughter which demonstrates sufficient flow to the right foot. Due to the clinical osteo and brisk capillary refill she will require a distal g reat toe amputation and if it doesn't heal then would recommend angiogram and revascularization. I did discuss this with her and she states she would like to try the amputation first. We will schedule for tomorrow.
[2024-01-02] MEDS: CEFEPIME 2 GM in SODIUM CHLORIDE 0.9% 100 ML IVPB SCH (16:24)
[2024-01-02 17:06] LABS: Glucose,Whole Blood 220 mg/dL (70-110)
[2024-01-02 20:11] LABS: Glucose,Whole Blood 208 mg/dL (70-110)
[2024-01-03 07:12] LABS: Glucose,Whole Blood 147 mg/dL (70-110)
[2024-01-03 09:22] LABS: ALT 22 U/L (8-44); AST 22 U/L (13-35); Albumin 3.1 g/dL (3.8-4.9); Albumin/Globulin Ratio 1.48 Ratio (1.60-3.17); Alkaline Phosphatase 151 U/L (41-126); Blood Urea Nitrogen 4.9 mg/dL (9.0-27.0); Calcium 8.6 mg/dL (8.7-10.3); Carbon Dioxide 27.5 mmol/L (21.6-31.8); Chloride 106 mmol/L (96-109); Globulin 2.1 g/dL (1.6-3.3); Glucose 160 mg/dL (70-110); Potassium 4.5 mmol/L (3.5-5.5); Sodium 142 mmol/L (135-145); Total Bilirubin <0.2 mg/dL (0.3-1.2); Total Protein 5.2 g/dL (6.2-8.2)
--- NOTE | 2024-01-03 09:34 | P.PN ---
Subjective Progress Note Date: 01/03/24 This is a 63-year-old female patient presented to [facility] with complaint of open wound on right big toe and severe right foot pain. Patient states symptoms had started 1 month prior after injury to her foot and she had been following with manager payer but her symptoms continue to worsen. Patient has past medical history of hypertension, hyperlipidemia, gtb-mlwvjfb-fwjyyfxwc diabetes mellitus, peripheral artery disease with previous angioplasty and stent placement and coronary artery disease with previous history of angioplasty and stent placement patient is currently 1 pack/day smoker denies any alcohol or drug use. Patient underwent debridement of right greater toe on 12/29/2023 and is currently being followed by infectious disease services maintained on Unasyn and vancomycin. On 12/31/2023 patient is alert and oriented x 3. Patient reports improvement with redness and erythema. Dressing is currently clean dry and intact patient remains on IV antibiotics of Vanco and Unasyn. Infectious disease services is following. Current vital signs temp 98.0, heart rate 80, respiratory rate 20, blood pressure 132/76 with a pulse ox of 93% on room air. White blood cell 8.6, hemoglobin 12.4, creatinine 0.51 and bun 8 On 01/02/2024 patient is alert and oriented x 3. Patient reports pain improvement in lower extremity pain. Awaiting final cultures. Patient remains on IV antibiotics. Current vital signs temp 98.1, heart rate 72, respiratory rate 16, blood pressure 125/67 with a pulse ox of 95% on room air. Patient denies chest pain or shortness of breath. Patient denies nausea vomiting or diarrhea. Patient denies any urinary burning or frequency On 01/03/2024 patient is alert and oriented x 3. Plans today for distal great toe amputation with Dr. Mack. Preliminary wound cultures growing Serratia and Citrobacter. Antibiotics adjusted per infectious disease. Current vital signs temp 98.0, heart rate 75, respiratory rate 16, blood pressure 126/73 with a pulse ox of 100% on room air. Patient denies chest pain or shortness of breath. Patient denies nausea vomiting or diarrhea. Patient denies any urinary burning or frequency Objective - Vital Signs Vital signs: Vital Signs Temp 98.0 F 01/03/24 07:38 Pulse 75 01/03/24 07:38 Resp 16 01/03/24 07:38 BP 177/83 01/03/24 07:38 Pulse Ox 95 01/03/24 07:38 FiO2 Intake & Output 01/02/24 01/03/24 01/03/24 18:59 06:59 18:59 Intake Total 1560 Balance 1560 Intake: Oral 1560 Other: # Voids 3 - Exam Head normocephalic Neck supple Lungs clear to auscultation bilaterally no wheezing or crackles Heart regular rate and rhythm S1-S2, no rub or gallop Abdomen is soft nontender nondistended positive bowel sounds no hepatosplenomegaly Extremities no edema. Right foot dressing clean dry and intact Neuro alert and orientated to 3 - Labs CBC & Chem 7: 01/01/24 02:45 01/03/24 04:30 Labs: Abnormal Lab Results - Last 24 Hours (Table) 01/02/24 01/02/24 01/02/24 Range/Units 11:21 17:05 20:09 BUN (9.0-27.0) mg/dL Creatinine (0.6-1.5) mg/dL BUN/Creatinine Ratio (12.00-20.00) Ratio Glucose (70-110) mg/dL POC Glucose (mg/dL) 241 H 220 H 208 H (70-110) mg/dL Calcium (8.7-10.3) mg/dL Total Bilirubin (0.3-1.2) mg/dL Alkaline Phosphatase (41-126) U/L Total Protein (6.2-8.2) g/dL Albumin (3.8-4.9) g/dL Albumin/Globulin Ratio (1.60-3.17) Ratio 01/03/24 01/03/24 Range/Units 04:30 07:11 BUN 4.9 L (9.0-27.0) mg/dL Creatinine 0.5 L (0.6-1.5) mg/dL BUN/Creatinine Ratio 9.80 L (12.00-20.00) Ratio Glucose 160 H (70-110) mg/dL POC Glucose (mg/dL) 147 H (70-110) mg/dL Calcium 8.6 L (8.7-10.3) mg/dL Total Bilirubin <0.2 L (0.3-1.2) mg/dL Alkaline Phosphatase 151 H (41-126) U/L Total Protein 5.2 L (6.2-8.2) g/dL Albumin 3.1 L (3.8-4.9) g/dL Albumin/Globulin Ratio 1.48 L (1.60-3.17) Ratio Assessment and Plan Assessment: 1. Right big toe open wound with right foot cellulitis status postdebridement 2. History of peripheral artery disease 3. History of essential hypertension 4. History of hyperlipidemia 5. History of zjn-skszobk-tmjuazfxb diabetes mellitus 6. History of coronary artery disease 7. History of ongoing nicotine abuse DVT prophylaxis Lovenox. GI prophylaxis Protonix patient remains on IV antibiotics cefepime Infectious disease and vascular services following Plans for toe amputation today 01/03/2024 Repeat labs ordered for a.m.
[2024-01-03 09:40] LABS: Basophils # (A) 0.06 X 10*3/uL (0.00-0.10); Basophils % (A) 0.8 %; Eosinophils # (A) 0.25 X 10*3/uL (0.04-0.35); Eosinophils % (A) 3.2 %; HCT 37.2 % (37.2-46.3); HGB 12.1 g/dL (12.0-15.0); Lymphocytes # (A) 1.94 X 10*3/uL (0.90-5.00); Lymphocytes % (A) 24.7 %; MCH 29.6 pg (27.0-32.0); MCHC 32.5 g/dL (32.0-37.0); Mean Platelet Volume 9.5 FL (9.5-12.2); Monocytes # (A) 0.79 X 10*3/uL (0.20-1.00); Monocytes % (A) 10.1 %; NRBC Per 100 WBC 0 X 10*3/uL (0.00-0.01); Neutrophils # (A) 4.79 X 10*3/uL (1.80-7.70); Neutrophils % (A) 60.8 %; Platelet Count 413 X 10*3/uL (140-440); RBC 4.09 X 10*6/uL (4.10-5.20); RDW 13.1 % (11.5-14.5); WBC 7.86 X 10*3/uL (4.50-10.00)
[2024-01-03 11:31] LABS: Glucose,Whole Blood 171 mg/dL (70-110)
[2024-01-03] MEDS: PIPERACILLIN-TAZOBACTAM 3.375 GM in SODIUM CHLORIDE 0.9% 100 ML IVPB SCH (11:38)
--- NOTE | 2024-01-03 12:42 | P.PN ---
Subjective Progress Note Date: 01/03/24 Principal diagnosis: Reason for follow-up is right big toe diabetic foot infection with a right foot cellulitis Patient is a 63-year-old female with multiple comorbidities including diabetes mellitus hypertension presented to the hospital with significant pain and swelling to the right big toe diagnosed with right diabetic foot infection and cellulitis of the right foot. On today's evaluation that is 01/03/2024, Patient is afebrile patient is currently on room air and denies having any shortness of breath, the patient denies any chest pain or cough, the patient denies any nausea vomiting did not have any abdominal pain and no diarrhea denies any worsening pain to the right foot. Patient did have symptoms of flushing and shortness of breath with cefepime yesterday and she refused further dosing Patient white count 7.86, creatinine 0.5 Objective - Vital Signs Vital signs: Vital Signs Temp 98.0 F 01/03/24 07:38 Pulse 75 01/03/24 07:38 Resp 16 01/03/24 07:38 BP 177/83 01/03/24 07:38 Pulse Ox 95 01/03/24 07:38 FiO2 Intake & Output 01/02/24 01/03/24 01/03/24 18:59 06:59 18:59 Intake Total 1560 Balance 1560 Intake: Oral 1560 Other: # Voids 3 - Exam GENERAL DESCRIPTION: Middle-age female up in bed in no distress RESPIRATORY SYSTEM: Unlabored breathing , decreased breath sounds at bases HEART: S1 S2 regular rate and rhythm , ABDOMEN: Soft , no tenderness EXTREMITIES: Right big toe tip with necrotic changes redness of the right foot slightly decreased - Labs CBC & Chem 7: 01/03/24 04:30 01/03/24 04:30 Labs: Abnormal Lab Results - Last 24 Hours (Table) 01/02/24 01/02/24 01/02/24 Range/Units 11:21 17:05 20:09 RBC (4.10-5.20) X 10*6/uL BUN (9.0-27.0) mg/dL Creatinine (0.6-1.5) mg/dL BUN/Creatinine Ratio (12.00-20.00) Ratio Glucose (70-110) mg/dL POC Glucose (mg/dL) 241 H 220 H 208 H (70-110) mg/dL Calcium (8.7-10.3) mg/dL Total Bilirubin (0.3-1.2) mg/dL Alkaline Phosphatase (41-126) U/L Total Protein (6.2-8.2) g/dL Albumin (3.8-4.9) g/dL Albumin/Globulin Ratio (1.60-3.17) Ratio 01/03/24 01/03/24 01/03/24 Range/Units 04:30 04:30 07:11 RBC 4.09 L (4.10-5.20) X 10*6/uL BUN 4.9 L (9.0-27.0) mg/dL Creatinine 0.5 L (0.6-1.5) mg/dL BUN/Creatinine Ratio 9.80 L (12.00-20.00) Ratio Glucose 160 H (70-110) mg/dL POC Glucose (mg/dL) 147 H (70-110) mg/dL Calcium 8.6 L (8.7-10.3) mg/dL Total Bilirubin <0.2 L (0.3-1.2) mg/dL Alkaline Phosphatase 151 H (41-126) U/L Total Protein 5.2 L (6.2-8.2) g/dL Albumin 3.1 L (3.8-4.9) g/dL Albumin/Globulin Ratio 1.48 L (1.60-3.17) Ratio Assessment and Plan (1) Cellulitis of right foot Current Visit: Yes Status: Acute Code(s): L03.115 - CELLULITIS OF RIGHT LOWER LIMB SNOMED Code(s): 84228938947529865 (2) Diabetic infection of right foot Current Visit: Yes Status: Acute Code(s): E11.628 - TYPE 2 DIABETES MELLITUS WITH OTHER SKIN COMPLICATIONS; L08.9 - LOCAL INFECTION OF THE SKIN AND SUBCUTANEOUS TISSUE, UNSP SNOMED Code(s): 559449217 Plan: 1patient presented to hospital with extensive right big toe diabetic foot infection with secondary cellulitis of the right foot 2-patient culture has been finalized with Serratia and Citrobacter, possible plan for distal phalanx amputation per vascular surgery 3unfortunately patient is refusing cefepime though explained to her that limited him it was not an allergic reaction and cefepime is still blood cultures for Serratia and Citrobacter patient continued to refuse we will discontinue cefepime and start the patient on Zosyn Dictation was produced using [employer] dictation software. please excuse any grammatical, word or spelling errors. Time with Patient: Less than 30
[2024-01-03] MEDS: SODIUM CHLORIDE 0.9% 1,000 ML IV ONE (18:03)
[2024-01-03] MEDS: ONDANSETRON 4 MG/2 ML VIAL IVP PRN (18:15)
[2024-01-03 18:16] LABS: Glucose,Whole Blood 136 mg/dL (70-110)
[2024-01-03] MEDS: DEXAMETHASONE SOD PHOSPHATE 4 MG/ML 1 ML VIAL IVP STA (18:17)
[2024-01-03] MEDS: FAMOTIDINE 20 MG/2 ML VIAL IV STA (18:17)
[2024-01-03] MEDS ORDERED: KETAMINE HCL IN 0.9 % NACL 50 MG/5 ML SYRINGE ONE (18:28)
[2024-01-03] MEDS ORDERED: PROPOFOL 10 MG/ML 20 ML VIAL IV ONE (18:28)
[2024-01-03] MEDS ORDERED: MIDAZOLAM 2 MG/2 ML VIAL ONE (18:28)
[2024-01-03] MEDS ORDERED: fentaNYL (PF) 50 MCG/ML 2 ML AMP ONE (18:28)
[2024-01-03] MEDS: LIDOCAINE 1% INJ 10MG/ML (20 ML MDV) SQ ONE ×2 (18:45)
--- NOTE | 2024-01-03 19:47 | P.OP ---
Date of Procedure: 01/03/24 Description of Procedure: SURGEON: Prema Lawrence DO POWDER OPERATOR: None PREOPERATIVE DIAGNOSIS: Right first toe osteomyelitis, wound, diabetes. POSTOPERATIVE DIAGNOSIS: Same. OPERATION: Right great toe amputation. ANESTHESIA: MAC with local ESTIMATED BLOOD LOSS: 5 cc SPECIMENS REMOVED: Distal right great toe COMPLICATIONS: None OPERATIVE FINDINGS: patient is a 63-year-old female with a an issue of A toe wound progressing to loss of the nailbed and down into the level of the bone on clinical exam therefore was recommended she undergo a toe amputation. Risks and benefits were discussed. She seemingly understood and was willing to proceed. DESCRIPTION OF PROCEDURE: This patient was brought to the operating room, and given local and IV sedation. The operative foot was prepped and draped in sterile manner. An incision was made at the inner phalangeal joint of the great toe and deeped into skin and fascia on plantar and dorsal aspect. The tendons were divided in plantar and dorsal aspects. The intra phalangeal joint was identified and the distal toe was resected. The bone cutters were used to transect the proximal phalanx and a rasp was used to smooth the bone. There were minimal bleeding points which were electrocoagulated.. Base of the wound looked clean, and the wound was copiously irrigated with saline. Tissue was approximated with 3-0 Vicryl interrupted sutures and skin reapproximated with vertical mattress sutures. Hemostasis was well controlled and pressure dressing was applied. The patient tolerated the procedure well.
[2024-01-03 20:09] LABS: Glucose,Whole Blood 164 mg/dL (70-110)
[2024-01-03] MEDS ORDERED: ATORVASTATIN 40 MG TAB ONE (21:00)
[2024-01-03] MEDS ORDERED: GABAPENTIN 300 MG CAP ONE (22:00)
[2024-01-04] MEDS ORDERED: HYDROcodone/APAP 10-325MG 1 EACH TAB ONE (00:19)
[2024-01-04 07:28] LABS: Glucose,Whole Blood 286 mg/dL (70-110)
[2024-01-04 11:05] LABS: Basophils # (A) 0.03 X 10*3/uL (0.00-0.10); Basophils % (A) 0.3 %; Eosinophils # (A) 0.02 X 10*3/uL (0.04-0.35); Eosinophils % (A) 0.2 %; HCT 39.4 % (37.2-46.3); HGB 12.6 g/dL (12.0-15.0); Lymphocytes % (A) 14.1 %; MCH 29.1 pg (27.0-32.0); Mean Platelet Volume 9.3 FL (9.5-12.2); Monocytes # (A) 0.76 X 10*3/uL (0.20-1.00); Monocytes % (A) 7.6 %; NRBC Per 100 WBC 0 X 10*3/uL (0.00-0.01); Neutrophils # (A) 7.69 X 10*3/uL (1.80-7.70); Neutrophils % (A) 77.3 %; Platelet Count 447 X 10*3/uL (140-440); RBC 4.33 X 10*6/uL (4.10-5.20); RDW 13.2 % (11.5-14.5); WBC 9.95 X 10*3/uL (4.50-10.00)
[2024-01-04 11:18] LABS: ALT 30 U/L (8-44); AST 28 U/L (13-35); Albumin 3.1 g/dL (3.8-4.9); Albumin/Globulin Ratio 1.29 Ratio (1.60-3.17); Alkaline Phosphatase 135 U/L (41-126); BUN/Creat Ratio 10.33 Ratio (12.00-20.00); Blood Urea Nitrogen 6.2 mg/dL (9.0-27.0); Calcium 8.6 mg/dL (8.7-10.3); Carbon Dioxide 24.8 mmol/L (21.6-31.8); Chloride 104 mmol/L (96-109); Globulin 2.4 g/dL (1.6-3.3); Glucose 314 mg/dL (70-110); Potassium 5.1 mmol/L (3.5-5.5); Sodium 139 mmol/L (135-145); Total Bilirubin <0.2 mg/dL (0.3-1.2); Total Protein 5.5 g/dL (6.2-8.2)
[2024-01-04 11:59] LABS: Glucose,Whole Blood 334 mg/dL (70-110)
[2024-01-04] MEDS: SODIUM CHLORIDE 0.9% 100 ML ONE (12:31)
--- NOTE | 2024-01-04 15:39 | P.PN ---
Subjective Progress Note Date: 01/04/24 Principal diagnosis: Reason for follow-up is right big toe diabetic foot infection with a right foot cellulitis Patient is a 63-year-old female with multiple comorbidities including diabetes mellitus hypertension presented to the hospital with significant pain and swelling to the right big toe diagnosed with right diabetic foot infection and cellulitis of the right foot.Patient is status post right big toe amputation completed on 01/03/2024. On today's evaluation that is 01/04/2024, patient has been afebrile, patient is breathing comfortably and is currently on room air, patient denies having any significant cough no chest pain shortness of breath, patient denies nausea vomiting or diarrhea and no abdominal pain patient pain to the right foot is currently controlled. Patient white count is 9.95, creatinine 0.6 Objective - Vital Signs Vital signs: Vital Signs Temp 97.7 F 01/04/24 07:22 Pulse 76 01/04/24 07:22 Resp 17 01/04/24 07:22 BP 151/74 01/04/24 07:22 Pulse Ox 90 L 01/04/24 07:22 FiO2 Intake & Output 01/03/24 01/04/24 01/04/24 18:59 06:59 18:59 Intake Total 800 300 480 Output Total 5 Balance 800 295 480 Intake: IV 300 0 Intake, IV Titration 260 300 Amount Piperacillin-Tazobactam 3 100 200 .375 gm In Sodium Chloride 0.9% 100 ml @ 25 mls/hr IVPB Q8H DENYS Rx#: [id number] Sodium Chloride 0.9% 1, 160 100 000 ml @ 20 mls/hr IV . Q24H DENYS Rx#:[id number] Oral 240 480 Output: Estimated Blood Loss 5 Other: # Voids 4 - Exam GENERAL DESCRIPTION: Middle-age female up in bed in no distress RESPIRATORY SYSTEM: Unlabored breathing , decreased breath sounds at bases HEART: S1 S2 regular rate and rhythm , ABDOMEN: Soft , no tenderness EXTREMITIES: Right foot is currently dressed - Labs CBC & Chem 7: 01/04/24 07:18 01/04/24 07:18 Labs: Abnormal Lab Results - Last 24 Hours (Table) 01/03/24 01/03/24 01/04/24 Range/Units 18:15 20:07 07:18 Plt Count 447 H (140-440) X 10*3/uL MPV 9.3 L (9.5-12.2) FL Immature Gran # 0.05 H (0.00-0.04) X 10*3/uL Eosinophils # 0.02 L (0.04-0.35) X 10*3/uL BUN (9.0-27.0) mg/dL BUN/Creatinine Ratio (12.00-20.00) Ratio Glucose (70-110) mg/dL POC Glucose (mg/dL) 136 H 164 H (70-110) mg/dL Calcium (8.7-10.3) mg/dL Total Bilirubin (0.3-1.2) mg/dL Alkaline Phosphatase (41-126) U/L Total Protein (6.2-8.2) g/dL Albumin (3.8-4.9) g/dL Albumin/Globulin Ratio (1.60-3.17) Ratio 01/04/24 01/04/24 01/04/24 Range/Units 07:18 07:26 11:58 Plt Count (140-440) X 10*3/uL MPV (9.5-12.2) FL Immature Gran # (0.00-0.04) X 10*3/uL Eosinophils # (0.04-0.35) X 10*3/uL BUN 6.2 L (9.0-27.0) mg/dL BUN/Creatinine Ratio 10.33 L (12.00-20.00) Ratio Glucose 314 H (70-110) mg/dL POC Glucose (mg/dL) 286 H 334 H (70-110) mg/dL Calcium 8.6 L (8.7-10.3) mg/dL Total Bilirubin <0.2 L (0.3-1.2) mg/dL Alkaline Phosphatase 135 H (41-126) U/L Total Protein 5.5 L (6.2-8.2) g/dL Albumin 3.1 L (3.8-4.9) g/dL Albumin/Globulin Ratio 1.29 L (1.60-3.17) Ratio Assessment and Plan (1) Cellulitis of right foot Current Visit: Yes Status: Acute Code(s): L03.115 - CELLULITIS OF RIGHT LOWER LIMB SNOMED Code(s): 70303109153230876 (2) Diabetic infection of right foot Current Visit: Yes Status: Acute Code(s): E11.628 - TYPE 2 DIABETES MELLITUS WITH OTHER SKIN COMPLICATIONS; L08.9 - LOCAL INFECTION OF THE SKIN AND SUBCUTANEOUS TISSUE, UNSP SNOMED Code(s): 716920789 Plan: 1patient presented to hospital with extensive right big toe diabetic foot infection with secondary cellulitis of the right foot 2-patient culture has been finalized with Serratia and Citrobacter, patient status post right big toe amputation 3will continue Zosyn while inpatient transition to oral antibiotics on discharge Dictation was produced using [employer] dictation software. please excuse any grammatical, word or spelling errors. Time with Patient: Less than 30
--- NOTE | 2024-01-04 15:58 | P.PN ---
Subjective Progress Note Date: 01/04/24 Postop day #1 right great toe amputation. Objective - Vital Signs Vital signs: Vital Signs Temp 97.7 F 01/04/24 12:49 Pulse 65 01/04/24 12:49 Resp 16 01/04/24 12:49 BP 103/58 01/04/24 12:49 Pulse Ox 98 01/04/24 12:49 FiO2 Intake & Output 01/03/24 01/04/24 01/04/24 18:59 06:59 18:59 Intake Total 800 300 480 Output Total 5 Balance 800 295 480 Intake: IV 300 0 Intake, IV Titration 260 300 Amount Piperacillin-Tazobactam 3 100 200 .375 gm In Sodium Chloride 0.9% 100 ml @ 25 mls/hr IVPB Q8H DENYS Rx#: [id number] Sodium Chloride 0.9% 1, 160 100 000 ml @ 20 mls/hr IV . Q24H DENYS Rx#:[id number] Oral 240 480 Output: Estimated Blood Loss 5 Other: # Voids 4 - Exam Subjectively the patient indicates her foot feels improved although some residual discomfort remains. Dressings are clean, dry and intact. There were left undisturbed. - Labs CBC & Chem 7: 01/04/24 07:18 01/04/24 07:18 Labs: Abnormal Lab Results - Last 24 Hours (Table) 01/03/24 01/03/24 01/04/24 Range/Units 18:15 20:07 07:18 Plt Count 447 H (140-440) X 10*3/uL MPV 9.3 L (9.5-12.2) FL Immature Gran # 0.05 H (0.00-0.04) X 10*3/uL Eosinophils # 0.02 L (0.04-0.35) X 10*3/uL BUN (9.0-27.0) mg/dL BUN/Creatinine Ratio (12.00-20.00) Ratio Glucose (70-110) mg/dL POC Glucose (mg/dL) 136 H 164 H (70-110) mg/dL Calcium (8.7-10.3) mg/dL Total Bilirubin (0.3-1.2) mg/dL Alkaline Phosphatase (41-126) U/L Total Protein (6.2-8.2) g/dL Albumin (3.8-4.9) g/dL Albumin/Globulin Ratio (1.60-3.17) Ratio 01/04/24 01/04/24 01/04/24 Range/Units 07:18 07:26 11:58 Plt Count (140-440) X 10*3/uL MPV (9.5-12.2) FL Immature Gran # (0.00-0.04) X 10*3/uL Eosinophils # (0.04-0.35) X 10*3/uL BUN 6.2 L (9.0-27.0) mg/dL BUN/Creatinine Ratio 10.33 L (12.00-20.00) Ratio Glucose 314 H (70-110) mg/dL POC Glucose (mg/dL) 286 H 334 H (70-110) mg/dL Calcium 8.6 L (8.7-10.3) mg/dL Total Bilirubin <0.2 L (0.3-1.2) mg/dL Alkaline Phosphatase 135 H (41-126) U/L Total Protein 5.5 L (6.2-8.2) g/dL Albumin 3.1 L (3.8-4.9) g/dL Albumin/Globulin Ratio 1.29 L (1.60-3.17) Ratio Assessment and Plan Assessment: Postop day #1. Plan: 1: Continue antibiotic therapy per ID. 2: Surgically stable for dismissal once all consultants are in agreement. Time with Patient: Less than 30
[2024-01-04 17:11] LABS: Glucose,Whole Blood 277 mg/dL (70-110)
--- NOTE | 2024-01-04 17:18 | P.PN ---
Subjective Progress Note Date: 01/04/24 Natali Klein, is a 63-year-old female patient presented to [facility] with complaint of open wound on right big toe and severe right foot pain. Patient states symptoms had started 1 month prior after injury to her foot and she had been following with consulting it architect but her symptoms continue to worsen. Patient has past medical history of hypertension, hyperlipidemia, lct-rrdwjua-ozuebeely diabetes mellitus, peripheral artery disease with previous angioplasty and stent placement and coronary artery disease with previous history of angioplasty and stent placement patient is currently 1 pack/day smoker denies any alcohol or drug use. Patient underwent debridement of right greater toe on 12/29/2023 and is currently being followed by infectious disease services maintained on Unasyn and vancomycin. On 12/31/2023 patient is alert and oriented x 3. Patient reports improvement with redness and erythema. Dressing is currently clean dry and intact patient remains on IV antibiotics of Vanco and Unasyn. Infectious disease services is following. Current vital signs temp 98.0, heart rate 80, respiratory rate 20, blood pressure 132/76 with a pulse ox of 93% on room air. White blood cell 8.6, hemoglobin 12.4, creatinine 0.51 and bun 8 On 01/01/2024 patient was seen and examined on the medical floor she is alert and oriented in no distress she is still complaining of severe right foot pain otherwise she denies any complaints there is no fever or chills no headache or dizziness no chest pain no shortness of breath no cough no nausea or vomiting no abdominal pain no diarrhea no urinary symptoms, at this time patient is still maintained on Unasyn and vancomycin awaiting wound culture results infectious disease are following. On 01/02/2024 patient is alert and oriented x 3. Patient reports pain improvement in lower extremity pain. Awaiting final cultures. Patient remains on IV antibiotics. Current vital signs temp 98.1, heart rate 72, respiratory rate 16, blood pressure 125/67 with a pulse ox of 95% on room air. Patient denies chest pain or shortness of breath. Patient denies nausea vomiting or diarrhea. Patient denies any urinary burning or frequency On 01/03/2024 patient is alert and oriented x 3. Plans today for distal great toe amputation with Dr. Mack. Preliminary wound cultures growing Serratia and Citrobacter. Antibiotics adjusted per infectious disease. Current vital signs temp 98.0, heart rate 75, respiratory rate 16, blood pressure 126/73 with a pulse ox of 100% on room air. Patient denies chest pain or shortness of breath. Patient denies nausea vomiting or diarrhea. Patient denies any urinary burning or frequency On 01/04/2024 patient was seen and examined on the medical floor she is alert and oriented x 3 in no apparent distress she is still complaining of pain in her right foot, she underwent, toe amputation yesterday, she is still maintained on IV antibiotic Zosyn, awaiting infectious disease recommendation for antibiotic at the time of discharge. Possible discharge to home tomorrow Objective - Vital Signs Vital signs: Vital Signs Temp 97.7 F 01/04/24 12:49 Pulse 65 01/04/24 12:49 Resp 16 01/04/24 12:49 BP 103/58 01/04/24 12:49 Pulse Ox 98 01/04/24 12:49 FiO2 Intake & Output 01/03/24 01/04/24 01/04/24 18:59 06:59 18:59 Intake Total 800 300 960 Output Total 5 Balance 800 295 960 Intake: IV 300 0 Intake, IV Titration 260 300 Amount Piperacillin-Tazobactam 3 100 200 .375 gm In Sodium Chloride 0.9% 100 ml @ 25 mls/hr IVPB Q8H DENYS Rx#: [id number] Sodium Chloride 0.9% 1, 160 100 000 ml @ 20 mls/hr IV . Q24H DENYS Rx#:[id number] Oral 240 960 Output: Estimated Blood Loss 5 Other: # Voids 4 - Exam In general patient is alert and oriented x 3 in no distress Head normocephalic and atraumatic Neck supple no JVD no goiter Lungs clear to auscultation bilaterally no wheezing or crackles Heart regular rate and rhythm S1-S2, no rub or gallop Abdomen is soft nontender nondistended positive bowel sounds no hepatosplenomegaly Extremities no edema. Right foot dressing clean dry and intact Neuro no gross focal deficit - Labs CBC & Chem 7: 01/04/24 07:18 01/04/24 07:18 Labs: Abnormal Lab Results - Last 24 Hours (Table) 01/03/24 01/03/24 01/04/24 Range/Units 18:15 20:07 07:18 Plt Count 447 H (140-440) X 10*3/uL MPV 9.3 L (9.5-12.2) FL Immature Gran # 0.05 H (0.00-0.04) X 10*3/uL Eosinophils # 0.02 L (0.04-0.35) X 10*3/uL BUN (9.0-27.0) mg/dL BUN/Creatinine Ratio (12.00-20.00) Ratio Glucose (70-110) mg/dL POC Glucose (mg/dL) 136 H 164 H (70-110) mg/dL Calcium (8.7-10.3) mg/dL Total Bilirubin (0.3-1.2) mg/dL Alkaline Phosphatase (41-126) U/L Total Protein (6.2-8.2) g/dL Albumin (3.8-4.9) g/dL Albumin/Globulin Ratio (1.60-3.17) Ratio 01/04/24 01/04/24 01/04/24 Range/Units 07:18 07:26 11:58 Plt Count (140-440) X 10*3/uL MPV (9.5-12.2) FL Immature Gran # (0.00-0.04) X 10*3/uL Eosinophils # (0.04-0.35) X 10*3/uL BUN 6.2 L (9.0-27.0) mg/dL BUN/Creatinine Ratio 10.33 L (12.00-20.00) Ratio Glucose 314 H (70-110) mg/dL POC Glucose (mg/dL) 286 H 334 H (70-110) mg/dL Calcium 8.6 L (8.7-10.3) mg/dL Total Bilirubin <0.2 L (0.3-1.2) mg/dL Alkaline Phosphatase 135 H (41-126) U/L Total Protein 5.5 L (6.2-8.2) g/dL Albumin 3.1 L (3.8-4.9) g/dL Albumin/Globulin Ratio 1.29 L (1.60-3.17) Ratio Assessment and Plan Plan: 1. Right big toe open wound with right foot cellulitis status postdebridement 2. History of peripheral artery disease 3. History of essential hypertension 4. History of hyperlipidemia 5. History of [id number]-baoyoqcqt diabetes mellitus 6. History of coronary artery disease 7. History of ongoing nicotine abuse DVT prophylaxis Lovenox. GI prophylaxis Protonix patient remains on IV antibiotics vancomycin and Unasyn Infectious disease and vascular services following Repeat labs ordered for a.m.
[2024-01-04 20:20] LABS: Glucose,Whole Blood 205 mg/dL (70-110)
[2024-01-04] MEDS: INSULIN ASPART (NovoLOG) 100 UNIT/ML VIAL SQ SCH (21:27)
[2024-01-05 07:02] LABS: Glucose,Whole Blood 215 mg/dL (70-110)
[2024-01-05 08:06] VITALS: RESP 20
--- NOTE | 2024-01-05 11:47 | P.DS ---
Providers Date of admission: 12/29/23 12:48 Expected date of discharge: 01/05/24 Attending physician: Lilly Barragan Consults: 12/30/23 15:29 Consult Physician Routine Consulting Provider: Elan Mcghee Consult Reason/Comments: Toe infection Do you want consulting provider notified?: Already Contacted Primary care physician: Lilly Barragan [place] [facility] Course: Discharge diagnosis 1. Right big toe open wound with right foot cellulitis status postdebridement 2. History of peripheral artery disease 3. History of essential hypertension 4. History of hyperlipidemia 5. History of ypi-hcnsqbr-lpychtzoa diabetes mellitus 6. History of coronary artery disease 7. History of ongoing nicotine abuse Hospital course Natali Klein, is a 63-year-old female patient presented to [facility] with complaint of open wound on right big toe and severe right foot pain. Patient states symptoms had started 1 month prior after injury to her foot and she had been following with evaporator repairer but her symptoms continue to worsen. Patient has past medical history of hypertension, hyperlipidemia, bnt-etwbddg-mwzjdiikm diabetes mellitus, peripheral artery disease with previous angioplasty and stent placement and coronary artery disease with previous history of angioplasty and stent placement patient is currently 1 pack/day smoke r denies any alcohol or drug use. Patient underwent debridement of right greater toe on 12/29/2023 and is currently being followed by infectious disease services maintained on Unasyn and vancomycin. On 12/31/2023 patient is alert and oriented x 3. Patient reports improvement with redness and erythema. Dressing is currently clean dry and intact patient remains on IV antibiotics of Vanco and Unasyn. Infectious disease services is following. Current vital signs temp 98.0, heart rate 80, respiratory rate 20, blood pressure 132/76 with a pulse ox of 93% on room air. White blood cell 8.6, hemoglobin 12.4, creatinine 0.51 and bun 8 On 01/01/2024 patient was seen and examined on the medical floor she is alert and oriented in no distress she is still complaining of severe right foot pain other suero she denies any complaints there is no fever or chills no headache or dizziness no chest pain no shortness of breath no cough no nausea or vomiting no abdominal pain no diarrhea no urinary symptoms, at this time patient is still maintained on Unasyn and vancomycin awaiting wound culture results infectious disease are following. On 01/02/2024 patient is alert and oriented x 3. Patient reports pain improvement in lower extremity pain. Awaiting final cultures. Patient remains on IV antibiotics. Current vital signs temp 98.1, heart rate 72, respiratory rate 16, blood pressure 125/67 with a pulse ox of 95% on room air. Patient denies chest pain or shortness of breath. Patient denies nausea vomiting or diarrhea. Patient denies any urinary burning or frequency On 01/03/2024 patient is alert and oriented x 3. Plans today for distal great toe amputation with Dr. Mack. Preliminary wound cultures growing Serratia and Citrobacter. Antibiotics adjusted per infectious disease. Current vital signs temp 98.0, heart rate 75, respiratory rate 16, blood pressure 126/73 with a pulse ox of 100% on room air. Patient denies chest pain or shortness of breath. Patient denies nausea vomiting or diarrhea. Patient denies any urinary burning or frequency On 01/04/2024 patient was seen and examined on the medical floor she is alert and oriented x 3 in no apparent distress she is still complaining of pain in her right foot, she underwent, toe amputation yesterday, she is still maintained on IV antibiotic Zosyn, awaiting infectious disease recommendation for antibiotic at the time of discharge. Possible discharge to home tomorrow On 01/05/2024 patient is alert and oriented x 3. Patient is very eager to be DC'd home. Per infectious disease patient may be DC'd on Cipro. Patient to wait to have foot evaluated by vascular and infectious disease prior to discharge. Blood pressure also to be rechecked prior to discharge. Blood sugars remain high patient will be started on glipizide and metformin outpatient hemoglobin A1c 12.3 patient to follow-up with PCP for further management Patient Condition at Discharge: Stable Plan - Discharge Summary New Discharge Prescriptions: New Ciprofloxacin HCl [Cipro] 500 mg PO BID 10 Days #20 tab metFORMIN HCL [Glucophage] 500 mg PO BID-W/MEALS 30 Days #60 tab Nicotine 14Mg/24Hr Patch [Habitrol] 1 patch TRANSDERM DAILY 30 Days #30 patch glipiZIDE 5 mg PO AC-TID 30 Days #90 tablet Continue Aspirin EC [Ecotrin Low Dose] 81 mg PO DAILY Atorvastatin Calcium 40 mg PO HS HYDROcodone/APAP 10-325MG [[place] 10-325] 1 tab PO BID PRN PRN Reason: Pain lisinopriL [Zestril] 20 mg PO DAILY Metoprolol Tartrate [Lopressor] 50 mg PO BID Omeprazole [PriLOSEC] 20 mg PO AC-BRKFST Rivaroxaban [Xarelto] 2.5 mg PO BID #180 tablet Budesonide/Formoterol Fumarate [Symbicort 160-4.5 Mcg Inhaler] 2 puff INHALATION RT-BID Gabapentin [Neurontin] 300 mg PO BID Clopidogrel [Plavix] 75 mg PO HS Discharge Medication List Aspirin EC [Ecotrin Low Dose] 81 mg PO DAILY 03/03/22 [History] Atorvastatin Calcium 40 mg PO HS 03/03/22 [History] Budesonide/Formoterol Fumarate [Symbicort 160-4.5 Mcg Inhaler] 2 puff INHALATION RT-BID 03/03/22 [History] HYDROcodone/APAP 10-325MG [[place] 10-325] 1 tab PO BID PRN 03/03/22 [History] Metoprolol Tartrate [Lopressor] 50 mg PO BID 03/03/22 [History] lisinopriL [Zestril] 20 mg PO DAILY 03/03/22 [History] Gabapentin [Neurontin] 300 mg PO BID 09/13/23 [History] Omeprazole [PriLOSEC] 20 mg PO AC-BRKFST 09/13/23 [History] Rivaroxaban [Xarelto] 2.5 mg PO BID #180 tablet 10/12/23 [Rx] Clopidogrel [Plavix] 75 mg PO HS 10/27/23 [History] Ciprofloxacin HCl [Cipro] 500 mg PO BID 10 Days #20 tab 01/05/24 [Rx] Nicotine 14Mg/24Hr Patch [Habitrol] 1 patch TRANSDERM DAILY 30 Days #30 patch 01/05/24 [Rx] glipiZIDE 5 mg PO AC-TID 30 Days #90 tablet 01/05/24 [Rx] metFORMIN HCL [Glucophage] 500 mg PO BID-W/MEALS 30 Days #60 tab 01/05/24 [Rx] Follow up Appointment(s)/Referral(s): [facility] Vis[facility] Nurse, [NON-STAFF] - 1 Week Lilly Barragan MD [Primary Care Provider] - 1 Week Activity/Diet/Wound Care/Special Instructions: Lyndsey Dobbs is your renal case manager through [facility] - call if you need anything. Discharge Disposition: HOME SELF-CARE
[2024-01-05 12:08] LABS: Glucose,Whole Blood 433 mg/dL (70-110)
--- NOTE | 2024-01-05 12:52 | P.PN ---
Subjective Progress Note Date: 01/05/24 Principal diagnosis: Reason for follow-up is right big toe diabetic foot infection with a right foot cellulitis Patient is a 63-year-old female with multiple comorbidities including diabetes mellitus hypertension presented to the hospital with significant pain and swelling to the right big toe diagnosed with right diabetic foot infection and cellulitis of the right foot.Patient is status post right big toe amputation completed on 01/03/2024. On today's evaluation that is 01/05/2024, Patient is afebrile this morning patient denies having any chest pain shortness of breath or cough, the patient is breathing comfortably and currently on room air, patient denies any abdominal pain no diarrhea no nausea no vomiting patient pain to the right big toe partial amputation site is controlled feeling better wants to go home no new labs initial culture positive for Serratia and Citrobacter Objective - Vital Signs Vital signs: Vital Signs Temp 97.7 F 01/05/24 07:03 Pulse 67 01/05/24 07:03 Resp 20 01/05/24 07:03 BP 170/82 01/05/24 07:03 Pulse Ox 92 L 01/05/24 07:03 FiO2 Intake & Output 01/04/24 01/05/24 01/05/24 18:59 06:59 18:59 Intake Total 3160 Balance 3160 Intake: Intake, IV Titration 280 Amount Piperacillin-Tazobactam 3 200 .375 gm In Sodium Chloride 0.9% 100 ml @ 25 mls/hr IVPB Q8H DENYS Rx#: [id number] Sodium Chloride 0.9% 1, 80 000 ml @ 20 mls/hr IV . Q24H DENYS Rx#:[id number] Oral 2880 Other: Voiding Method Toilet # Voids 6 2 # Bowel Movements 1 - Exam GENERAL DESCRIPTION: Middle-age female up in bed in no distress RESPIRATORY SYSTEM: Unlabored breathing , decreased breath sounds at bases HEART: S1 S2 regular rate and rhythm , ABDOMEN: Soft , no tenderness EXTREMITIES: Right big toe partial amputation site stitched minimal swelling no redness or drainage - Labs CBC & Chem 7: 01/04/24 07:18 01/04/24 07:18 Labs: Abnormal Lab Results - Last 24 Hours (Table) 01/04/24 01/04/24 01/04/24 Range/Units 07:18 07:18 11:58 Plt Count 447 H (140-440) X 10*3/uL MPV 9.3 L (9.5-12.2) FL Immature Gran # 0.05 H (0.00-0.04) X 10*3/uL Eosinophils # 0.02 L (0.04-0.35) X 10*3/uL BUN 6.2 L (9.0-27.0) mg/dL BUN/Creatinine Ratio 10.33 L (12.00-20.00) Ratio Glucose 314 H (70-110) mg/dL POC Glucose (mg/dL) 334 H (70-110) mg/dL Calcium 8.6 L (8.7-10.3) mg/dL Total Bilirubin <0.2 L (0.3-1.2) mg/dL Alkaline Phosphatase 135 H (41-126) U/L Total Protein 5.5 L (6.2-8.2) g/dL Albumin 3.1 L (3.8-4.9) g/dL Albumin/Globulin Ratio 1.29 L (1.60-3.17) Ratio 01/04/24 01/04/24 01/05/24 Range/Units 17:10 20:18 07:00 Plt Count (140-440) X 10*3/uL MPV (9.5-12.2) FL Immature Gran # (0.00-0.04) X 10*3/uL Eosinophils # (0.04-0.35) X 10*3/uL BUN (9.0-27.0) mg/dL BUN/Creatinine Ratio (12.00-20.00) Ratio Glucose (70-110) mg/dL POC Glucose (mg/dL) 277 H 205 H 215 H (70-110) mg/dL Calcium (8.7-10.3) mg/dL Total Bilirubin (0.3-1.2) mg/dL Alkaline Phosphatase (41-126) U/L Total Protein (6.2-8.2) g/dL Albumin (3.8-4.9) g/dL Albumin/Globulin Ratio (1.60-3.17) Ratio Assessment and Plan (1) Cellulitis of right foot Current Visit: Yes Status: Acute Code(s): L03.115 - CELLULITIS OF RIGHT LOWER LIMB SNOMED Code(s): 61267383992875542 (2) Diabetic infection of right foot Current Visit: Yes Status: Acute Code(s): E11.628 - TYPE 2 DIABETES MELLITUS WITH OTHER SKIN COMPLICATIONS; L08.9 - LOCAL INFECTION OF THE SKIN AND SUBCUTANEOUS TISSUE, UNSP SNOMED Code(s): 574098630 Plan: 1patient presented to hospital with extensive right big toe diabetic foot infection with secondary cellulitis of the right foot 2-patient culture has been finalized with Serratia and Citrobacter, patient status post right big toe partial amputation 3with infected part removed we will consider a 10-day course of oral Cipro on discharge, discussed with the MANAGEMENT RECRUITER for admitting team also advised keeping the leg elevated and avoid prolonged standing or walking to help heal this incision to prevent incision dehiscence and further infection this was explained to the patient and her in layman terms Dictation was produced using mention dictation software. please excuse any grammatical, word or spelling errors. Time with Patient: Less than 30
[2024-01-05] MEDS: INSULIN ASPART (NovoLOG) 100 UNIT/ML VIAL SQ ONE (13:16)
[2024-01-05 13:21] VITALS: BP 155/82; PULSE 62; TEMP 98.4
--- NOTE | 2024-01-22 10:18 | XR ---
Patient: Natali Klein Ordering Physician: Unknown, Unknown ID: [id number] Phone, Pager: Phone: N/A Pager: N/A : 1960 Age/Gender: 63Y, F Primary Location: N/A Procedure: XR foot complete R T Study Date: 12/29/2023 11:13:41 AM EXAMINATION TYPE: Foot X-Ray Complete Right DATE OF EXAM: 12/29/2023 CLINICAL HISTORY: Infection TECHNIQUE: Frontal, lateral and oblique images of the right foot are obtained. COMPARISON: None. FINDINGS: There is no acute fracture/dislocation evident. Soft tissue ulceration great toe. There ap pears to be mild erosive change at the distal aspect of the distal phalanx suspicious for osteomyelit is. Correlate clinically. IMPRESSION: Findings are suspicious for osteomyelitis of the distal phalanx right great toe.
--- NOTE | 2024-01-24 16:14 | US ---
Patient: Natali Klein Ordering Physician: Unknown, Unknown ID: [id number] Phone, Pager: Phone: N /A Pager: N/A : 1960 Age/Gender: 63Y, O Primary Location: N/A Procedure: US arterial LE multi level Study Date: 12/29/2023 5:51:00 PM EXAMINATION TYPE: US arterial LE multi level DATE OF EXAM: 12/31/2023 9:43 PM CLINICAL INDICATION: H/O heart stents, right leg stenting done 1 month prior, great right tow red, sw ollen, open wound x 3-4 days, decrease pulses RT TIMOTHY = 0.8 LT TIMOTHY = 1.0 Current smoker with hyperlipidemia and diabetes hypertension and previous vascular surgery. Doppler Waveforms: Right: Monophasic Left: Monophasic Right Brachial Pressure: 133 Left Brachial Pressure: 129 Ankle-Brachial Indices: RT TIMOTHY = 0.8 LT TIMOTHY = 1.0 (Vessel hardening > 1.4; Normal 0.9 - 1.4, Moderate 0.7 - 0.9, Severe 0.5-0.7) Toe Brachial Indices: Right: 0.82 Left: 1.01 IMPRESSION: Moderate right and normal left ankle-brachial indices.
--- NOTE | 2024-02-02 12:58 | PN ---
PROGRESS NOTE DATE OF SERVICE: 12/30/2023 LOCATION: 2. REASON FOR FOLLOWUP: Right big toe diabetic foot ulcer and right foot cellulitis. INTERVAL HISTORY: The patient is afebrile. The patient is breathing comfortably on room air. No chest pain, shortness of breath, or cough. Still complaining of pain and discomfort in the right big toe. No chest pain, shortness of breath, or cough. No diarrhea. EXAMINATION: VITAL SIGNS: Blood pressure 149/77, pulse of 88, temperature 97.8. GENERAL DESCRIPTION: This is a middle-aged female, up in the bed in no distress. RESPIRATORY SYSTEM: Unlabored breathing. Clear to auscultation anteriorly. HEART: S1, S2. Regular rate and rhythm. ABDOMEN: Soft, no tenderness. EXTREMITIES: Right foot is currently dressed. No drainage on the dressing. LABS: White count 6.69, white count 0.82. DIAGNOSTIC IMPRESSION AND PLAN: The patient with right big toe diabetic foot infection with secondary cellulitis of the right foot. Possibly abscess need to be physically debrided with deep culture. The patient is covered with Unasyn and vancomycin, to continue while watching her kidney function closely. Questions and concerns were answered. MMODL / IJN: [id number] /
--- NOTE | 2024-02-02 12:58 | CONS ---
CONSULTATION LOCATION: 522. REASON FOR CONSULTATION: Right diabetic foot infection. HISTORY OF PRESENT ILLNESS: The patient is a -ykxa-vje female with a past medical history significant for diabetes mellitus, hypertension, hyperlipidemia, coronary artery disease, peripheral arterial disease, current smoker, presented to hospital for evaluation of worsening pain and swelling to the right big toe as well as a wound on the dorsum aspect of the right foot. The patient's symptoms started about a week ago, started with trauma, subsequently noticed to have increasing swelling and redness to the right big toe, which has become mostly pustular and also noticed to have swelling and redness extending to the dorsum aspect of the right foot. The patient is describing the pain to be sharp, throbbing about 9/10 without any radiation with associated swelling and redness, but no drainage. She has been running a fever. The patient mentioned she was waiting for to be evaluated by her chain saw operator, who saw the patient this morning and subsequently sent the patient to the ER for admission. The patient was evaluated by the ER physician, started on vancomycin and Zosyn. Infectious Disease was consulted for further management of antibiotic therapy. REVIEW OF SYSTEMS: Positive points have been mentioned in HPI. Rest of systems is negative. PAST MEDICAL HISTORY: Diabetes mellitus, hypertension, hyperlipidemia, peripheral arterial disease, and coronary artery disease. PAST SURGICAL HISTORY: The patient did have PTCA stent to the heart and bilateral lower extremity vascular intervention, stenting for the blockage. SOCIAL HISTORY: The patient is . Smokes about a pack a day. Denies any drinking or drug use. FAMILY HISTORY: No pertinent findings noticed. ALLERGIES: No known drug allergies. MEDICATIONS: Currently, the patient is on: 1. Vancomycin, pharmacy to dose. 2. She is on Zosyn 3.375 g q.8 hours. 3. She is on aspirin. 4. Lipitor. 5. Lisinopril. 6. Lopressor. 7. Neurontin. 8. [place]. 9. Metformin. 10.Plavix. PHYSICAL EXAMINATION: VITAL SIGNS: Blood pressure is 110/67, pulse of 73, temperature 97.8. She is 96% on room air. GENERAL: The patient is a middle-aged female, lying in bed, in no distress. No tachypnea or accessory muscle of respiration use. HEENT: No pallor or scleral icterus. Oral mucous membranes moist. NECK: Trachea central. No thyromegaly. LUNGS: Unlabored breathing. Clear to auscultation anteriorly. No wheeze or crackle. HEART: S1, S2. Regular rate and rhythm. ABDOMEN: Soft. No tenderness. No guarding or rigidity. EXTREMITIES: No edema in the feet. Examination right big toe is mostly swollen. Did have pustules with necrotic wound on top with associated swelling and redness spreading to the dorsum aspect of the right foot, warm and tender to touch. No drainage. NEUROLOGICAL: The patient is awake, alert and oriented x3. Mood and affect normal. LABORATORY DATA: Hemoglobin is 15.8, white count 10.15. Electrolytes are normal. BUN of 11, creatinine 0.47. DIAGNOSTIC IMPRESSION AND PLAN: 1. The patient with extensive right diabetic foot infection with pustules, secondary cellulitis extending to the right foot. We will need to cover for the polymicrobial emile associated with diabetic foot infection. 2. The patient will need a surgical debridement and deep culture, for which Vascular Surgery will be consulted. 3. We will keep the patient on vancomycin, pharmacy to dose while watching her kidney function closely, however, switch the Zosyn to Unasyn to decrease risk of nephrotoxicity. 4. We will follow clinical condition and culture to further adjust medication if needed. Thank you for this consultation. We will follow this patient along with you. MMODL / IJN: [id number] /
== END 2024-01-05 16:27 | disposition home health service (06) | DRG 629 ==
LOC: 5NMEDONC 12:48
PROVIDERS: ADMIT Internal Medicine; ATTEND Internal Medicine
PROC: 0QBQ0ZZ Excision of Right Toe Phalanx, Open Approach (ICD-10-PCS; principal; 2024-01-03 10:25)
DX: E11.69 Type 2 diabetes mellitus with other specified complication (principal); L03.115 Cellulitis of right lower limb; M86.8X7 Other osteomyelitis, ankle and foot; S91.101A Unspecified open wound of right great toe without damage to nail, initial encounter; E11.51 Type 2 diabetes mellitus with diabetic peripheral angiopathy without gangrene; E78.5 Hyperlipidemia, unspecified; E11.628 Type 2 diabetes mellitus with other skin complications; I10 Essential (primary) hypertension; F17.210 Nicotine dependence, cigarettes, uncomplicated; I25.10 Atherosclerotic heart disease of native coronary artery without angina pectoris; Z88.1 Allergy status to other antibiotic agents
CPT/HCPCS: 80048; 80053; 80061; 80202; 83036; 84100; 84443; 85025; 85652; 87040; 87070; 87077; 87186; 87205; 93005; 93923; 96365; 96366; 99284